=== PATIENT | female | born 1940 | race Two or more races ===

== ENCOUNTER → 2016-11-12 | Outpatient (CLI) | payer OTHER ==
[~2016-11-12] MED LIST: ASPI81CH37; CHOL100029; CLOP75TA28; LISI-646; METF500T; METH2.5T3; OMEG100062; PENT400T21; [UNRECOGNIZED DRUG - CODE]
[2016-11-12 15:30] LABS: Basophils # (auto) 0 uL; Basophils % (auto) 0.4 % (0.0-2.0); Eosinophils # (auto) 0.1 uL; Eosinophils % (auto) 0.9 % (0.0-7.0); Hematocrit 41.8 % (36.0-46.0); Hemoglobin 13.4 g/dL (12.2-16.2); Lymphocytes # (auto) 2.4 uL; Lymphocytes % (auto) 25.7 % (10.0-50.0); Mean Corpuscular Volume 93.7 fL (80.0-100.0); Mean Platelet Volume 7.5 fL (7.4-10.4); Monocytes # (auto) 0.8 uL; Monocytes % (auto) 8.9 % (0.0-12.0); Neutrophils # (auto) 5.9 uL; Neutrophils % (auto) 64.1 % (37.0-80.0); Platelet Count (auto) 324 10^3/uL (140-450); Red Cell Distribution Width 14.7 % (11.6-16.0); White Blood Cell 9.3 10^3/uL (4.4-10.8)
[2016-11-12 15:53] LABS: Albumin 3.6 g/dL (3.4-5.0); Bilirubin, Total 0.4 mg/dL (0.2-1.0); Calcium 9.4 mg/dL (8.5-10.1); Total Protein 7.6 g/dL (6.4-8.2)
== END | disposition home or self-care (01) ==
LOC: LAB 14:39
DX: M06.9 Rheumatoid arthritis, unspecified (principal); M25.50 Pain in unspecified joint; D64.9 Anemia, unspecified; I10 Essential (primary) hypertension; Z79.899 Other long term (current) drug therapy
CPT/HCPCS: 36415; 80053; 85025; 85652; 86141

== ENCOUNTER → 2016-11-25 | Outpatient (CLI) | payer OTHER | END | disposition home or self-care (01) | LOC: LAB 16:50 | PROVIDERS: ATTEND Internal Medicine | DX: E10.9 Type 1 diabetes mellitus without complications (principal); I10 Essential (primary) hypertension | CPT/HCPCS: 36415; 83036; 84439; 84443 ==

== ENCOUNTER → 2017-02-21 | Outpatient (CLI) | payer OTHER ==
[2017-02-21 14:22] LABS: Basophils # (auto) 0 uL; Basophils % (auto) 0.4 % (0.0-2.0); Eosinophils # (auto) 0.1 uL; Eosinophils % (auto) 1.1 % (0.0-7.0); Hematocrit 39.9 % (36.0-46.0); Hemoglobin 13.4 g/dL (12.2-16.2); Lymphocytes # (auto) 2.5 uL; Lymphocytes % (auto) 25.4 % (10.0-50.0); Mean Corpuscular Hemoglobin 30.8 pg (28.0-32.0); Mean Corpuscular Hgb Conc. 33.7 g/dL (32.0-36.0); Mean Corpuscular Volume 91.3 fL (80.0-100.0); Mean Platelet Volume 7.4 fL (7.4-10.4); Monocytes # (auto) 0.6 uL; Monocytes % (auto) 6.5 % (0.0-12.0); Neutrophils # (auto) 6.6 uL; Neutrophils % (auto) 66.6 % (37.0-80.0); Platelet Count (auto) 327 10^3/uL (140-450); Red Cell Distribution Width 14.9 % (11.6-16.0)
[2017-02-21 14:36] LABS: Albumin 3.5 g/dL (3.4-5.0); Bilirubin, Total 0.4 mg/dL (0.2-1.0); Potassium 4.1 mmol/L (3.5-5.1); Total Protein 7.9 g/dL (6.4-8.2); Uric Acid 2.3 mg/dL (2.6-6.0)
== END | disposition home or self-care (01) ==
LOC: LAB 13:55
PROVIDERS: ATTEND Internal Medicine
DX: E10.9 Type 1 diabetes mellitus without complications (principal); M25.50 Pain in unspecified joint
CPT/HCPCS: 36415; 80053; 83036; 84550; 85025; 86141

== ENCOUNTER → 2017-03-18 | Outpatient (CLI) | payer OTHER | END | disposition home or self-care (01) | LOC: LAB 14:13 | DX: K75.9 Inflammatory liver disease, unspecified (principal); B19.20 Unspecified viral hepatitis C without hepatic coma; A15.0 Tuberculosis of lung | CPT/HCPCS: 36415; 80074; 86704; 86706; 86708; 86803; 87340 ==

== ENCOUNTER → 2017-06-18 | Outpatient (CLI) | payer OTHER ==
[2017-06-18 14:34] LABS: Basophils # (auto) 0 uL; Basophils % (auto) 0.4 % (0.0-2.0); Eosinophils # (auto) 0.2 uL; Eosinophils % (auto) 2.1 % (0.0-7.0); Hematocrit 38.5 % (36.0-46.0); Hemoglobin 13.3 g/dL (12.2-16.2); Lymphocytes # (auto) 2.6 uL; Lymphocytes % (auto) 29.2 % (10.0-50.0); Mean Corpuscular Hemoglobin 30.7 pg (28.0-32.0); Mean Corpuscular Hgb Conc. 34.7 g/dL (32.0-36.0); Mean Corpuscular Volume 88.5 fL (80.0-100.0); Monocytes # (auto) 0.6 uL; Monocytes % (auto) 7.3 % (0.0-12.0); Neutrophils # (auto) 5.4 uL; Platelet Count (auto) 337 10^3/uL (140-450); Red Cell Distribution Width 14.6 % (11.8-14.3); White Blood Cell 8.9 10^3/uL (4.4-10.8)
[2017-06-18 15:00] LABS: Albumin 3.2 g/dL (3.4-5.0); BUN/Creatinine Ratio 22.9; Bilirubin, Total 0.3 mg/dL (0.2-1.0); Calcium 9.2 mg/dL (8.5-10.1); Total Protein 7.9 g/dL (6.4-8.2)
== END | disposition home or self-care (01) ==
LOC: LAB 14:21
DX: I10 Essential (primary) hypertension (principal); M06.9 Rheumatoid arthritis, unspecified; M25.50 Pain in unspecified joint; D64.9 Anemia, unspecified; Z79.899 Other long term (current) drug therapy
CPT/HCPCS: 36415; 80053; 85025; 85652; 86141

== ENCOUNTER → 2017-09-24 | Outpatient (CLI) | payer OTHER ==
[2017-09-24 13:51] LABS: Basophils # (auto) 0 uL; Basophils % (auto) 0.4 % (0.0-2.0); Eosinophils # (auto) 0.1 uL; Eosinophils % (auto) 0.7 % (0.0-7.0); Hematocrit 43.2 % (36.0-46.0); Lymphocytes # (auto) 2.7 uL; Lymphocytes % (auto) 26.3 % (10.0-50.0); Mean Corpuscular Hemoglobin 32.1 pg (28.0-32.0); Mean Corpuscular Hgb Conc. 34.6 g/dL (32.0-36.0); Mean Corpuscular Volume 92.6 fL (80.0-100.0); Mean Platelet Volume 6.9 fL (6.9-10.8); Monocytes # (auto) 0.9 uL; Monocytes % (auto) 8.7 % (0.0-12.0); Neutrophils # (auto) 6.5 uL; Neutrophils % (auto) 63.9 % (37.0-80.0); Platelet Count (auto) 283 10^3/uL (140-450); Red Cell Distribution Width 14.8 % (11.8-14.3); White Blood Cell 10.1 10^3/uL (4.4-10.8)
[2017-09-24 14:16] LABS: Albumin 3.6 g/dL (3.4-5.0); BUN/Creatinine Ratio 21.1; Bilirubin, Total 0.5 mg/dL (0.2-1.0); Calcium 9.3 mg/dL (8.5-10.1); Potassium 3.5 mmol/L (3.5-5.1); Total Protein 7.7 g/dL (6.4-8.2)
== END | disposition home or self-care (01) ==
LOC: LAB 13:31
DX: I10 Essential (primary) hypertension (principal); M06.9 Rheumatoid arthritis, unspecified; E78.00 Pure hypercholesterolemia, unspecified; I70.0 Atherosclerosis of aorta; D64.9 Anemia, unspecified; Z79.899 Other long term (current) drug therapy
CPT/HCPCS: 36415; 80053; 85025; 85652; 86141

== ENCOUNTER → 2017-11-26 | Outpatient (CLI) | payer OTHER ==
[2017-11-26 10:46] LABS: Basophils # (auto) 0 uL; Basophils % (auto) 0.4 % (0.0-2.0); Eosinophils # (auto) 0.1 uL; Hematocrit 43.2 % (36.0-46.0); Hemoglobin 14.7 g/dL (12.2-16.2); Lymphocytes # (auto) 1.8 uL; Lymphocytes % (auto) 21.4 % (10.0-50.0); Mean Corpuscular Hemoglobin 31.5 pg (28.0-32.0); Mean Corpuscular Volume 92.7 fL (80.0-100.0); Monocytes # (auto) 0.7 uL; Monocytes % (auto) 7.9 % (0.0-12.0); Neutrophils # (auto) 5.9 uL; Neutrophils % (auto) 69.3 % (37.0-80.0); Nucleated Red Blood Cells % 0.1 %; Platelet Count (auto) 320 10^3/uL (140-450); Red Blood Cells 4.66 10^6/uL (4.0-5.20); Red Cell Distribution Width 13.5 % (11.8-14.3); White Blood Cell 8.4 10^3/uL (4.4-10.8)
[2017-11-26 11:27] LABS: Albumin 3.2 g/dL (3.4-5.0); BUN/Creatinine Ratio 26.4; Bilirubin, Total 0.3 mg/dL (0.2-1.0); CRP High Sensitivity 0.11 mg/dL (< 0.3); Calcium 9.3 mg/dL (8.5-10.1); Potassium 3.9 mmol/L (3.5-5.1); Total Protein 7.9 g/dL (6.4-8.2)
[2017-11-26 12:06] LABS: Free T4 (Free Thyroxine) 1.55 ng/dL (0.89-1.76)
[2017-11-26 12:07] LABS: Folate (Folic Acid) 19.83 ng/mL (5.38-24)
[2017-11-26 13:48] LABS: Urine Amorphous Crystal FEW /hpf (None Seen); Urine Bacteria MOD /hpf (None Seen); Urine Blood Negative /uL (Negative); Urine Budding Yeast FEW /hpf (None Seen); Urine Specific Gravity 1.005 (1.001-1.035); Urine WBC 2 /hpf (0 - 5)
[2017-11-27 03:07] LABS: RPR Non Reactive (Non Reactive)
== END | disposition home or self-care (01) ==
LOC: LAB 09:29
PROVIDERS: ATTEND Internal Medicine
DX: M06.9 Rheumatoid arthritis, unspecified (principal); I10 Essential (primary) hypertension; R41.89 Other symptoms and signs involving cognitive functions and awareness
CPT/HCPCS: 36415; 80053; 80061; 81001; 82043; 82607; 82746; 83036; 84439; 84443; 85025; 86141; 86592

== ENCOUNTER → 2018-03-17 | Outpatient (CLI) | payer OTHER ==
[2018-03-17 10:17] LABS: Basophils # (auto) 0.1 uL; Basophils % (auto) 0.6 % (0.0-2.0); Eosinophils # (auto) 0.1 uL; Eosinophils % (auto) 0.9 % (0.0-7.0); Hematocrit 41.8 % (36.0-46.0); Lymphocytes # (auto) 1.9 uL; Lymphocytes % (auto) 22.9 % (10.0-50.0); Mean Corpuscular Hemoglobin 29.5 pg (28.0-32.0); Mean Corpuscular Hgb Conc. 33.4 g/dL (32.0-36.0); Mean Corpuscular Volume 88.3 fL (80.0-100.0); Monocytes # (auto) 0.8 uL; Monocytes % (auto) 10.2 % (0.0-12.0); Neutrophils # (auto) 5.4 uL; Neutrophils % (auto) 65.4 % (37.0-80.0); Nucleated Red Blood Cells % 0.1 %; Platelet Count (auto) 301 10^3/uL (140-450); Red Blood Cells 4.73 10^6/uL (4.0-5.20); White Blood Cell 8.2 10^3/uL (4.4-10.8)
[2018-03-17 10:43] LABS: BUN/Creatinine Ratio 31.1; Bilirubin, Total 0.5 mg/dL (0.2-1.0); CRP High Sensitivity 0.12 mg/dL (< 0.3); Calcium 8.8 mg/dL (8.5-10.1); Potassium 4.4 mmol/L (3.5-5.1); Total Protein 7.4 g/dL (6.4-8.2)
== END | disposition home or self-care (01) ==
LOC: LAB 09:59
PROVIDERS: ATTEND Internal Medicine
DX: E11.9 Type 2 diabetes mellitus without complications (principal); M06.9 Rheumatoid arthritis, unspecified; I10 Essential (primary) hypertension; E78.00 Pure hypercholesterolemia, unspecified; Z79.899 Other long term (current) drug therapy; Z86.2 Personal history of diseases of the blood and blood-forming organs and certain disorders involving the immune mechanism
CPT/HCPCS: 36415; 80053; 83036; 85025; 86141

== ENCOUNTER → 2018-06-03 | Outpatient (CLI) | payer OTHER ==
[2018-06-03 14:38] LABS: Basophils # (auto) 0 uL; Basophils % (auto) 0.6 % (0.0-2.0); Eosinophils # (auto) 0.2 uL; Eosinophils % (auto) 2.9 % (0.0-7.0); Hematocrit 40.6 % (36.0-46.0); Hemoglobin 13.5 g/dL (12.2-16.2); Lymphocytes # (auto) 2.3 uL; Lymphocytes % (auto) 31.2 % (10.0-50.0); Mean Corpuscular Hemoglobin 29.3 pg (28.0-32.0); Mean Corpuscular Hgb Conc. 33.2 g/dL (32.0-36.0); Mean Corpuscular Volume 88.1 fL (80.0-100.0); Monocytes # (auto) 0.6 uL; Monocytes % (auto) 8.3 % (0.0-12.0); Neutrophils # (auto) 4.2 uL; Platelet Count (auto) 314 10^3/uL (140-450); Red Blood Cells 4.61 10^6/uL (4.0-5.20); Red Cell Distribution Width 14.3 % (11.8-14.3); White Blood Cell 7.4 10^3/uL (4.4-10.8)
[2018-06-03 15:25] LABS: Albumin 3.5 g/dL (3.4-5.0); BUN/Creatinine Ratio 13.9; Bilirubin, Total 0.5 mg/dL (0.2-1.0); CRP High Sensitivity 0.08 mg/dL (< 0.3); Calcium 8.9 mg/dL (8.5-10.1); Total Protein 7.7 g/dL (6.4-8.2); Uric Acid 3.2 mg/dL (2.6-6.0)
== END | disposition home or self-care (01) ==
LOC: LAB 14:18
PROVIDERS: ATTEND Internal Medicine
DX: I10 Essential (primary) hypertension (principal); M06.9 Rheumatoid arthritis, unspecified
CPT/HCPCS: 36415; 80053; 83880; 84550; 85025; 86141

== ENCOUNTER → 2018-06-05 | Outpatient (CLI) | payer OTHER | END | disposition home or self-care (01) | LOC: XY 09:34 | PROVIDERS: ATTEND Internal Medicine | DX: M71.22 Synovial cyst of popliteal space [Baker], left knee (principal); I86.8 Varicose veins of other specified sites; I10 Essential (primary) hypertension; E11.9 Type 2 diabetes mellitus without complications | CPT/HCPCS: 93970 ==

== ENCOUNTER → 2018-06-25 | Outpatient (CLI) | payer OTHER ==
[2018-06-25 15:19] LABS: Basophils # (auto) 0 uL; Basophils % (auto) 0.5 % (0.0-2.0); Eosinophils # (auto) 0.2 uL; Eosinophils % (auto) 1.8 % (0.0-7.0); Hematocrit 42.5 % (36.0-46.0); Hemoglobin 14.4 g/dL (12.2-16.2); Lymphocytes # (auto) 2.1 uL; Lymphocytes % (auto) 24.3 % (10.0-50.0); Mean Corpuscular Hemoglobin 29.5 pg (28.0-32.0); Mean Corpuscular Hgb Conc. 33.9 g/dL (32.0-36.0); Mean Corpuscular Volume 86.9 fL (80.0-100.0); Monocytes # (auto) 0.7 uL; Monocytes % (auto) 7.6 % (0.0-12.0); Neutrophils # (auto) 5.8 uL; Neutrophils % (auto) 65.8 % (37.0-80.0); Platelet Count (auto) 257 10^3/uL (140-450); Red Blood Cells 4.89 10^6/uL (4.0-5.20); Red Cell Distribution Width 13.8 % (11.8-14.3); White Blood Cell 8.7 10^3/uL (4.4-10.8)
[2018-06-25 16:04] LABS: Albumin 3.6 g/dL (3.4-5.0); BUN/Creatinine Ratio 21.5; Bilirubin, Total 0.4 mg/dL (0.2-1.0); CRP High Sensitivity 0.29 mg/dL (< 0.3); Potassium 4.3 mmol/L (3.5-5.1); Total Protein 8.5 g/dL (6.4-8.2)
[2018-06-25 16:11] LABS: Hepatitis B Surface Antibody Negative
[2018-06-25 16:50] LABS: Hepatitis A Total Antibody Positive
[2018-06-25 16:53] LABS: Hepatitis B Core Total AB Negative
[2018-06-25 16:54] LABS: Hepatitis B Surface Antigen Negative (Negative); Hepatitis C Antibody Negative (Negative)
== END | disposition home or self-care (01) ==
LOC: LAB 14:42
PROVIDERS: ATTEND Internal Medicine
DX: M06.9 Rheumatoid arthritis, unspecified (principal); E11.9 Type 2 diabetes mellitus without complications; I10 Essential (primary) hypertension
CPT/HCPCS: 36415; 80053; 82306; 84443; 85025; 85652; 86038; 86141; 86200; 86235; 86431; 86704; 86706; 86708; 86803; 87340

== ENCOUNTER → 2018-07-27 | Outpatient (CLI) | payer OTHER | END | disposition home or self-care (01) | LOC: XYW 09:34 | PROVIDERS: ATTEND Internal Medicine | DX: R74.8 Abnormal levels of other serum enzymes (principal) | CPT/HCPCS: 78306; A9503 ==

== ENCOUNTER 2018-08-04 15:56 | Inpatient (IN) | payer OTHER ==
[~2018-08-04] VITALS: Ht 152.4 cm; Wt 52.9 kg
[2018-08-04] MEDS ORDERED: VANCOMYCIN 1GM/250ML 250 ML IV ONE (17:15)
[2018-08-04 17:44] LABS: Basophils # (auto) 0 uL; Basophils % (auto) 0.4 % (0.0-2.0); Eosinophils # (auto) 0.1 uL; Eosinophils % (auto) 1.3 % (0.0-7.0); Hematocrit 39.6 % (36.0-46.0); Hemoglobin 13.3 g/dL (12.2-16.2); Lymphocytes # (auto) 1.5 uL; Lymphocytes % (auto) 17.8 % (10.0-50.0); Mean Corpuscular Hgb Conc. 33.7 g/dL (32.0-36.0); Monocytes # (auto) 0.8 uL; Monocytes % (auto) 9.5 % (0.0-12.0); Neutrophils # (auto) 6.2 uL; Platelet Count (auto) 303 10^3/uL (140-450); Red Cell Distribution Width 14.3 % (11.8-14.3); White Blood Cell 8.7 10^3/uL (4.4-10.8)
[2018-08-04 18:01] LABS: Albumin 3.4 g/dL (3.4-5.0); Calcium 9.1 mg/dL (8.5-10.1); Potassium 3.9 mmol/L (3.5-5.1)
[2018-08-04 18:04] LABS: Bilirubin, Total 0.6 mg/dL (0.2-1.0)
[2018-08-04 18:11] LABS: Lactic Acid w/Reflex 2.4 mmol/L (0.4-2.0)
[2018-08-04] MEDS ORDERED: ACETAMINOPHEN 500 MG TAB PO PRN (22:30)
[2018-08-04] MEDS ORDERED: SODIUM CHLORIDE 0.9% 1,000 ML IV ONE (22:30)
[2018-08-04] MEDS ORDERED: DEXTROSE (50%) 50ML SYRG IV PRN (22:30)
[2018-08-04] MEDS ORDERED: ONDANSETRON HCL 4 MG/2 ML VIAL IV PRN (22:30)
[2018-08-04 23:05] VITALS: BP 130/68
[2018-08-04] MEDS: HYDROcodone-ACET 5/325MG TAB PO PRN (23:59)
[2018-08-05 05:15] VITALS: BP 109/63
[2018-08-05 05:48] LABS: Basophils # (auto) 0 uL; Basophils % (auto) 0.4 % (0.0-2.0); Eosinophils # (auto) 0.2 uL; Eosinophils % (auto) 3.5 % (0.0-7.0); Hematocrit 35.7 % (36.0-46.0); Hemoglobin 12.2 g/dL (12.2-16.2); Lymphocytes % (auto) 29.7 % (10.0-50.0); Mean Corpuscular Hemoglobin 29.4 pg (28.0-32.0); Mean Corpuscular Hgb Conc. 34.3 g/dL (32.0-36.0); Mean Corpuscular Volume 85.6 fL (80.0-100.0); Monocytes # (auto) 0.8 uL; Monocytes % (auto) 11.8 % (0.0-12.0); Neutrophils # (auto) 3.6 uL; Neutrophils % (auto) 54.6 % (37.0-80.0); Nucleated Red Blood Cells % 0.1 %; Platelet Count (auto) 276 10^3/uL (140-450); Red Blood Cells 4.17 10^6/uL (4.0-5.20); Red Cell Distribution Width 14.3 % (11.8-14.3); White Blood Cell 6.6 10^3/uL (4.4-10.8)
[2018-08-05 05:59] LABS: BUN/Creatinine Ratio 17.9; Calcium 8.2 mg/dL (8.5-10.1); Potassium 3.6 mmol/L (3.5-5.1)
[2018-08-05] MEDS: CLINDAMYCIN 600MG IV 50 ML IV SCH ×3 (06:15→22:00)
[2018-08-05] MEDS: HYDROcodone-ACET 5/325MG TAB PO PRN ×3 (06:30→20:30)
[2018-08-05] MEDS: ACCU-CHEK COMFORT CURVE STRIP VI SCH ×4 (06:31→22:15)
[2018-08-05] MEDS: InsuLIN REG 1unit/0.01ml Soln (100units/ml) SC SCH ×4 (06:32→22:15)
[2018-08-05] MEDS ORDERED: metFORMIN HYDROCHLORIDE 500 MG TAB PO SCH ×2 (07:00→10:00)
[2018-08-05 07:15] LABS: Urine Bacteria FEW /hpf (None Seen); Urine Blood TRACE /uL (Negative); Urine WBC 342 /hpf (0 - 5); Urine WBC Clumps PRESENT /hpf (None Seen)
[2018-08-05 08:02] VITALS: BP 109/67
[2018-08-05] MEDS ORDERED: FOLI1TAB6 PO (09:21)
[2018-08-05] MEDS ORDERED: LISI-275 PO (09:21)
[2018-08-05] MEDS ORDERED: CLOP75TA41 PO (09:21)
[2018-08-05] MEDS ORDERED: METF-370 PO (09:21)
[2018-08-05] MEDS: LISINOPRIL 10 MG TAB PO SCH (09:22)
[2018-08-05] MEDS: CLOPIDOGREL BISULFATE 75 MG TAB PO SCH (10:00)
[2018-08-05] MEDS ORDERED: LEVOFLOXACIN 500MG 100 ML IV ONE (12:00)
[2018-08-05 12:34] VITALS: BP 121/68
[2018-08-05 16:13] VITALS: BP 103/54
[2018-08-05 22:00] VITALS: BP 117/65
[2018-08-06 04:55] VITALS: BP 120/68
[2018-08-06] MEDS: CLINDAMYCIN 600MG IV 50 ML IV SCH ×3 (05:54→21:22)
[2018-08-06] MEDS: ACCU-CHEK COMFORT CURVE STRIP VI SCH ×4 (06:11→21:22)
[2018-08-06] MEDS: InsuLIN REG 1unit/0.01ml Soln (100units/ml) SC SCH ×4 (06:12→21:23)
[2018-08-06 09:11] VITALS: BP 133/76
[2018-08-06] MEDS: LISINOPRIL 10 MG TAB PO SCH (10:00)
[2018-08-06] MEDS ORDERED: LEVOFLOXACIN 500MG 100 ML IV SCH (10:00)
[2018-08-06] MEDS: CLOPIDOGREL BISULFATE 75 MG TAB PO SCH (10:00)
[2018-08-06] MEDS ORDERED: LEVOFLOXACIN 250MG 50 ML IV SCH (10:00)
[2018-08-06] MEDS ORDERED: SODIUM CHLORIDE 0.9% 1,000 ML IV ONE (10:30)
[2018-08-06] MEDS ORDERED: IOHEXOL 350 MG/ML 100ML IJ ONE ×2 (12:06→12:09)
[2018-08-06 13:29] VITALS: BP 119/70
[2018-08-06 17:28] VITALS: BP 126/75
[2018-08-06 20:00] VITALS: BP 122/64
[2018-08-06] MEDS: HYDROcodone-ACET 5/325MG TAB PO PRN (21:30)
[2018-08-06 23:53] VITALS: BP 122/31
[2018-08-07] VITALS (7 sets, daily range): BP systolic 111–140; BP diastolic 60–72
[2018-08-07] MEDS: CLINDAMYCIN 600MG IV 50 ML IV SCH ×3 (05:35→21:59)
[2018-08-07 05:41] LABS: INR 0.94 (0.9-1.15); Partial Thromboplastin Time 22.9 sec (23.78-33.04); Prothrombin Time 10.1 sec (9.27-12.13)
[2018-08-07 05:57] LABS: BUN/Creatinine Ratio 15.9; Calcium 8.3 mg/dL (8.5-10.1)
[2018-08-07] MEDS: InsuLIN REG 1unit/0.01ml Soln (100units/ml) SC SCH ×4 (06:52→22:06)
[2018-08-07] MEDS: ACCU-CHEK COMFORT CURVE STRIP VI SCH ×4 (06:52→22:06)
[2018-08-07] MEDS: CLOPIDOGREL BISULFATE 75 MG TAB PO SCH (10:00)
[2018-08-07] MEDS ORDERED: LEVOFLOXACIN 500MG 100 ML IV SCH (10:00)
[2018-08-07] MEDS: LISINOPRIL 10 MG TAB PO SCH (10:00)
[2018-08-07] MEDS ORDERED: SODIUM CHL 0.9% 50 ML ONE ×2 (10:42→12:52)
[2018-08-07] MEDS ORDERED: MIDAZOLAM HCL 1MG/1ML-2 ML VIAL ONE ×3 (10:42→13:19)
[2018-08-07] MEDS ORDERED: fentaNYL CITRATE 100 MCG/2 ML VL ONE ×2 (10:42→12:14)
[2018-08-07] MEDS ORDERED: ANGIOMAX 250 MG VIAL IV ONE ×2 (10:43→12:53)
[2018-08-07] MEDS ORDERED: IOHEXOL 350 MG/ML 100ML IJ ONE (10:45)
[2018-08-07] MEDS ORDERED: LIDOCAINE 2%HCL (LOCAL ANESTH.) INJ 20ML MDV ONE ×2 (10:46→12:31)
[2018-08-07] MEDS ORDERED: IODIXANOL 320MG/ML 100ML BTL IV ONE (10:54)
[2018-08-07] MEDS ORDERED: CLOPIDOGREL BISULFATE 75 MG TAB ONE (10:58)
[2018-08-07] MEDS ORDERED: hydrOXYzine HCL 25 MG/ML VL IM ONE (13:37)
[2018-08-07] MEDS: HYDROcodone-ACET 5/325MG TAB PO PRN (21:59)
[2018-08-08 05:17] VITALS: BP 114/63
[2018-08-08] MEDS: CLINDAMYCIN 600MG IV 50 ML IV SCH ×3 (05:49→21:39)
[2018-08-08] MEDS: ACCU-CHEK COMFORT CURVE STRIP VI SCH ×4 (05:50→21:39)
[2018-08-08] MEDS: InsuLIN REG 1unit/0.01ml Soln (100units/ml) SC SCH ×4 (05:57→21:49)
[2018-08-08] MEDS: HYDROcodone-ACET 5/325MG TAB PO PRN (05:57)
[2018-08-08 06:07] LABS: Basophils # (auto) 0 uL; Basophils % (auto) 0.6 % (0.0-2.0); Eosinophils # (auto) 0.2 uL; Eosinophils % (auto) 2.5 % (0.0-7.0); Hematocrit 35.6 % (36.0-46.0); Hemoglobin 12.1 g/dL (12.2-16.2); Lymphocytes # (auto) 1.7 uL; Lymphocytes % (auto) 23.6 % (10.0-50.0); Mean Corpuscular Hemoglobin 29.1 pg (28.0-32.0); Mean Corpuscular Hgb Conc. 34.1 g/dL (32.0-36.0); Mean Corpuscular Volume 85.4 fL (80.0-100.0); Monocytes # (auto) 0.8 uL; Monocytes % (auto) 10.9 % (0.0-12.0); Neutrophils # (auto) 4.6 uL; Neutrophils % (auto) 62.4 % (37.0-80.0); Platelet Count (auto) 272 10^3/uL (140-450); Red Blood Cells 4.17 10^6/uL (4.0-5.20); Red Cell Distribution Width 14.6 % (11.8-14.3); White Blood Cell 7.3 10^3/uL (4.4-10.8)
[2018-08-08 06:30] LABS: Calcium 8.3 mg/dL (8.5-10.1); Potassium 4.3 mmol/L (3.5-5.1)
[2018-08-08 06:33] LABS: BUN/Creatinine Ratio 27.9
[2018-08-08 09:00] VITALS: BP 111/54
[2018-08-08] MEDS: CLOPIDOGREL BISULFATE 75 MG TAB PO SCH (09:27)
[2018-08-08] MEDS: LISINOPRIL 10 MG TAB PO SCH (15:19)
[2018-08-08 17:04] VITALS: BP 108/55
[2018-08-08 22:00] VITALS: BP 129/68
[2018-08-09 05:25] VITALS: BP 115/54
[2018-08-09] MEDS: CLINDAMYCIN 600MG IV 50 ML IV SCH ×3 (06:15→21:56)
[2018-08-09] MEDS: InsuLIN REG 1unit/0.01ml Soln (100units/ml) SC SCH ×4 (06:36→21:56)
[2018-08-09] MEDS: ACCU-CHEK COMFORT CURVE STRIP VI SCH ×4 (06:36→21:56)
[2018-08-09 09:00] VITALS: BP 88/46
[2018-08-09] MEDS: CLOPIDOGREL BISULFATE 75 MG TAB PO SCH (09:19)
[2018-08-09] MEDS: LISINOPRIL 10 MG TAB PO SCH (09:19)
[2018-08-09] MEDS: HYDROcodone-ACET 5/325MG TAB PO PRN ×2 (09:21→23:19)
[2018-08-09 13:00] VITALS: BP 115/59
[2018-08-09] MEDS ORDERED: TEMAZEPAM 15 MG CAP PO PRN (15:00)
[2018-08-09 17:00] VITALS: BP 118/68
[2018-08-09 22:00] VITALS: BP 125/69
[2018-08-10 05:10] VITALS: BP 121/64
[2018-08-10] MEDS: CLINDAMYCIN 600MG IV 50 ML IV SCH ×3 (06:14→22:15)
[2018-08-10] MEDS: ACCU-CHEK COMFORT CURVE STRIP VI SCH ×4 (06:15→22:15)
[2018-08-10] MEDS: InsuLIN REG 1unit/0.01ml Soln (100units/ml) SC SCH ×4 (06:15→22:16)
[2018-08-10 09:05] VITALS: BP 126/71
[2018-08-10] MEDS: LISINOPRIL 10 MG TAB PO SCH (11:17)
[2018-08-10] MEDS: CLOPIDOGREL BISULFATE 75 MG TAB PO SCH (11:17)
[2018-08-10] MEDS: HYDROcodone-ACET 5/325MG TAB PO PRN (11:57)
[2018-08-10 12:04] VITALS: BP 126/74
[2018-08-10 16:24] VITALS: BP 126/70
[2018-08-10 20:00] VITALS: BP 113/62
[2018-08-10 21:27] VITALS: BP 113/62
[2018-08-11 05:26] VITALS: BP 108/55
[2018-08-11 05:46] LABS: Basophils # (auto) 0 uL; Basophils % (auto) 0.7 % (0.0-2.0); Eosinophils # (auto) 0.4 uL; Hematocrit 36.7 % (36.0-46.0); Hemoglobin 12.6 g/dL (12.2-16.2); Lymphocytes % (auto) 27.6 % (10.0-50.0); Mean Corpuscular Hemoglobin 29.3 pg (28.0-32.0); Mean Corpuscular Hgb Conc. 34.4 g/dL (32.0-36.0); Mean Corpuscular Volume 85.3 fL (80.0-100.0); Monocytes # (auto) 0.8 uL; Monocytes % (auto) 11.5 % (0.0-12.0); Neutrophils # (auto) 3.9 uL; Neutrophils % (auto) 55.2 % (37.0-80.0); Platelet Count (auto) 302 10^3/uL (140-450); Red Blood Cells 4.31 10^6/uL (4.0-5.20); White Blood Cell 7.1 10^3/uL (4.4-10.8)
[2018-08-11] MEDS: CLINDAMYCIN 600MG IV 50 ML IV SCH ×3 (05:50→22:08)
[2018-08-11 06:05] LABS: Calcium 8.5 mg/dL (8.5-10.1); Potassium 4.1 mmol/L (3.5-5.1)
[2018-08-11] MEDS: ACCU-CHEK COMFORT CURVE STRIP VI SCH ×4 (06:53→22:13)
[2018-08-11] MEDS: InsuLIN REG 1unit/0.01ml Soln (100units/ml) SC SCH ×4 (06:53→22:00)
[2018-08-11 08:36] VITALS: BP 102/65
[2018-08-11] MEDS: CLOPIDOGREL BISULFATE 75 MG TAB PO SCH ×2 (10:00→16:45)
[2018-08-11] MEDS: LISINOPRIL 10 MG TAB PO SCH (10:00)
[2018-08-11] MEDS ORDERED: LIDOCAINE 2%HCL (LOCAL ANESTH.) INJ 20ML MDV ONE (12:20)
[2018-08-11] MEDS ORDERED: IODIXANOL 320MG/ML 100ML BTL IV ONE (12:21)
[2018-08-11] MEDS ORDERED: ANGIOMAX 250 MG VIAL IV ONE ×2 (12:25→15:12)
[2018-08-11] MEDS ORDERED: MIDAZOLAM HCL 1MG/1ML-2 ML VIAL ONE (12:25)
[2018-08-11] MEDS ORDERED: fentaNYL CITRATE 100 MCG/2 ML VL ONE ×2 (12:25→14:42)
[2018-08-11] MEDS ORDERED: SODIUM CHL 0.9% 50 ML ONE ×2 (12:26→15:12)
[2018-08-11] MEDS ORDERED: VERAPAMIL 2.5MG/ML INJ 2ML VIAL IV ONE ×2 (12:26→15:11)
[2018-08-11] MEDS ORDERED: IOHEXOL 350 MG/ML 100ML IJ ONE (12:33)
[2018-08-11] MEDS: HYDROcodone-ACET 5/325MG TAB PO PRN (17:08)
[2018-08-11 23:02] VITALS: BP 118/67
[2018-08-12] MEDS: HYDROcodone-ACET 5/325MG TAB PO PRN ×2 (04:38→09:25)
[2018-08-12 05:12] VITALS: BP 114/56
[2018-08-12] MEDS: CLINDAMYCIN 600MG IV 50 ML IV SCH (05:35)
[2018-08-12] MEDS: InsuLIN REG 1unit/0.01ml Soln (100units/ml) SC SCH ×2 (06:36→11:30)
[2018-08-12] MEDS: ACCU-CHEK COMFORT CURVE STRIP VI SCH ×2 (06:36→11:30)
[2018-08-12 08:00] VITALS: BP 107/60
[2018-08-12 08:47] VITALS: BP 107/60
[2018-08-12] MEDS: CLOPIDOGREL BISULFATE 75 MG TAB PO SCH (09:24)
[2018-08-12] MEDS: LISINOPRIL 10 MG TAB PO SCH (09:25)
[2018-08-12] MEDS ORDERED: AMOX-263 PO (09:34)
[2018-08-12 10:17] VITALS: BP 107/60
== END 2018-08-12 12:13 | disposition home or self-care (01) | DRG 271 ==
LOC: ER 16:02 → OVERFLOW 16:03 → WEST WING 23:05
PROVIDERS: ADMIT Nurse Practitioner Family; ATTEND Internal Medicine
PROC: 047L3Z1 Dilation of Left Femoral Artery using Drug-Coated Balloon, Percutaneous Approach (ICD-10-PCS; principal; 2018-08-11)
PROC: 04CL3ZZ Extirpation of Matter from Left Femoral Artery, Percutaneous Approach (ICD-10-PCS; 2018-08-11)
PROC: 047N3Z1 Dilation of Left Popliteal Artery using Drug-Coated Balloon, Percutaneous Approach (ICD-10-PCS; 2018-08-11)
PROC: 047Q3Z1 Dilation of Left Anterior Tibial Artery using Drug-Coated Balloon, Percutaneous Approach (ICD-10-PCS; 2018-08-11)
PROC: 047U3Z1 Dilation of Left Peroneal Artery using Drug-Coated Balloon, Percutaneous Approach (ICD-10-PCS; 2018-08-11)
PROC: 047J3D1 Dilation of Left External Iliac Artery with Intraluminal Device, using Drug-Coated Balloon, Percutaneous Approach (ICD-10-PCS; 2018-08-11)
PROC: B41G1ZZ Fluoroscopy of Left Lower Extremity Arteries using Low Osmolar Contrast (ICD-10-PCS; 2018-08-11)
DX: I74.5 Embolism and thrombosis of iliac artery (principal); L03.116 Cellulitis of left lower limb; E87.1 Hypo-osmolality and hyponatremia; N39.0 Urinary tract infection, site not specified; I70.92 Chronic total occlusion of artery of the extremities; I10 Essential (primary) hypertension; E11.8 Type 2 diabetes mellitus with unspecified complications; E11.51 Type 2 diabetes mellitus with diabetic peripheral angiopathy without gangrene; M19.90 Unspecified osteoarthritis, unspecified site; B95.61 Methicillin susceptible Staphylococcus aureus infection as the cause of diseases classified elsewhere; Z16.11 Resistance to penicillins; I70.292 Other atherosclerosis of native arteries of extremities, left leg; I70.0 Atherosclerosis of aorta; I70.202 Unspecified atherosclerosis of native arteries of extremities, left leg; J98.4 Other disorders of lung
CPT/HCPCS: 36415; 71046; 73630; 75625; 75635; 76937; 76942; 80048; 80053; 81001; 82962; 83036; 83605; 85025; 85610; 85652; 85730; 87040; 87077; 87086; 87186; 87205; 93005; 93925; 94761; 96361; 96365; 96367; 99152; A6257; C1769; C1781; C1887; G0378; J1815; J1956; J2250; J3490; Q9967

== ENCOUNTER → 2018-09-11 | Outpatient (CLI) | payer OTHER ==
[~2018-09-11] MED LIST changes: +AMOX-263 PO; -ASPI81CH37; -CHOL100029; -CLOP75TA28; +CLOP75TA41 PO; +FOLI1TAB6 PO; +LISI-275 PO; -LISI-646; +METF-370 PO; -METF500T; -METH2.5T3; -OMEG100062; -PENT400T21; -[UNRECOGNIZED DRUG - CODE]
[2018-09-11 14:46] LABS: Basophils # (auto) 0 uL; Basophils % (auto) 0.5 % (0.0-2.0); Eosinophils # (auto) 0.2 uL; Hematocrit 36.4 % (36.0-46.0); Hemoglobin 12.2 g/dL (12.2-16.2); Lymphocytes # (auto) 2.1 uL; Lymphocytes % (auto) 26.2 % (10.0-50.0); Mean Corpuscular Hemoglobin 28.4 pg (28.0-32.0); Mean Corpuscular Hgb Conc. 33.5 g/dL (32.0-36.0); Mean Corpuscular Volume 84.7 fL (80.0-100.0); Monocytes # (auto) 0.7 uL; Monocytes % (auto) 8.5 % (0.0-12.0); Neutrophils # (auto) 4.8 uL; Neutrophils % (auto) 61.8 % (37.0-80.0); Nucleated Red Blood Cells % 0.1 %; Platelet Count (auto) 299 10^3/uL (140-450); White Blood Cell 7.8 10^3/uL (4.4-10.8)
[2018-09-11 14:54] LABS: Urine Blood Negative /uL (Negative); Urine Specific Gravity 1.004 (1.001-1.035)
[2018-09-11 15:10] LABS: Albumin 3.4 g/dL (3.4-5.0); Potassium 3.8 mmol/L (3.5-5.1)
[2018-09-11 15:20] LABS: BUN/Creatinine Ratio 18.2; Bilirubin, Total 0.5 mg/dL (0.2-1.0); CRP High Sensitivity 1.45 mg/dL (< 0.3); Total Protein 7.5 g/dL (6.4-8.2)
== END | disposition home or self-care (01) ==
LOC: LAB 13:39
PROVIDERS: ATTEND Internal Medicine
DX: M05.79 Rheumatoid arthritis with rheumatoid factor of multiple sites without organ or systems involvement (principal); I10 Essential (primary) hypertension; E11.9 Type 2 diabetes mellitus without complications
CPT/HCPCS: 36415; 80053; 81003; 85025; 85652; 86141

== ENCOUNTER → 2019-02-08 | Outpatient (CLI) | payer OTHER ==
[2019-02-08 11:53] LABS: Basophils # (auto) 0 uL; Basophils % (auto) 0.4 % (0.0-2.0); Eosinophils # (auto) 0.2 uL; Eosinophils % (auto) 2.5 % (0.0-7.0); Hematocrit 36.8 % (36.0-46.0); Hemoglobin 12.4 g/dL (12.2-16.2); Lymphocytes # (auto) 1.7 uL; Lymphocytes % (auto) 22.7 % (10.0-50.0); Mean Corpuscular Hemoglobin 27.6 pg (28.0-32.0); Mean Corpuscular Hgb Conc. 33.9 g/dL (32.0-36.0); Mean Corpuscular Volume 81.5 fL (80.0-100.0); Monocytes # (auto) 0.6 uL; Monocytes % (auto) 8.2 % (0.0-12.0); Neutrophils # (auto) 4.9 uL; Neutrophils % (auto) 66.2 % (37.0-80.0); Platelet Count (auto) 333 10^3/uL (140-450); Red Blood Cells 4.51 10^6/uL (4.0-5.20); Red Cell Distribution Width 16.2 % (11.8-14.3); White Blood Cell 7.4 10^3/uL (4.4-10.8)
[2019-02-08 12:41] LABS: Potassium 4.3 mmol/L (3.5-5.1)
[2019-02-08 12:56] LABS: Albumin 3.3 g/dL (3.4-5.0); BUN/Creatinine Ratio 17.9; Bilirubin, Total 0.4 mg/dL (0.2-1.0); Calcium 9.1 mg/dL (8.5-10.1); Total Protein 7.8 g/dL (6.4-8.2)
[2019-02-08 14:34] LABS: Free T4 (Free Thyroxine) 1.42 ng/dL (0.89-1.76)
[2019-02-09 12:46] LABS: Urine Bacteria FEW /hpf (None Seen); Urine Blood Negative /uL (Negative); Urine Specific Gravity 1.005 (1.001-1.035); Urine WBC 7 /hpf (0 - 5)
== END | disposition home or self-care (01) ==
LOC: LAB 10:45
PROVIDERS: ATTEND Internal Medicine
DX: E11.9 Type 2 diabetes mellitus without complications (principal); M06.9 Rheumatoid arthritis, unspecified; I10 Essential (primary) hypertension
CPT/HCPCS: 36415; 80053; 80061; 81001; 82043; 82607; 83036; 84439; 84443; 85025; 85652

== ENCOUNTER → 2019-03-19 | Outpatient (CLI) | payer OTHER ==
[2019-03-19 13:42] LABS: Alcohol, Urine < 3.0 mg/dL (0-5); Amphetamine Screen, Urine NEGATIVE (NEGATIVE); Barbiturate Scree,Urine NEGATIVE (NEGATIVE); Benzodiazephine Screen, Urine NEGATIVE (NEGATIVE); Cannabinoid Screen, Urine NEGATIVE (NEGATIVE); Cocaine Screen, Urine NEGATIVE (NEGATIVE); Opiate Scree,Urine NEGATIVE (NEGATIVE); Phencyclidine Screen, Urine NEGATIVE (NEGATIVE)
== END | disposition home or self-care (01) ==
LOC: LAB 13:14
PROVIDERS: ATTEND Internal Medicine
DX: Z79.899 Other long term (current) drug therapy (principal)
CPT/HCPCS: 80307

== ENCOUNTER → 2019-09-07 | Outpatient (CLI) | payer OTHER ==
[2019-09-07 15:40] LABS: Eosinophils # (auto) 0.1 uL; Lymphocytes # (auto) 2.1 uL; White Blood Cell 12.2 10^3/uL (4.4-10.8)
[2019-09-07 15:41] LABS: Basophils # (auto) 0.1 uL; Basophils % (auto) 0.6 % (0.0-2.0); Eosinophils % (auto) 0.7 % (0.0-7.0); Hematocrit 24.2 % (36.0-46.0); Hemoglobin 7.2 g/dL (12.2-16.2); Lymphocytes % (auto) 16.8 % (10.0-50.0); Mean Corpuscular Hemoglobin 17.8 pg (28.0-32.0); Mean Corpuscular Hgb Conc. 29.7 g/dL (32.0-36.0); Mean Corpuscular Volume 59.8 fL (80.0-100.0); Monocytes # (auto) 0.9 uL; Monocytes % (auto) 7.2 % (0.0-12.0); Neutrophils # (auto) 9.1 uL; Neutrophils % (auto) 74.7 % (37.0-80.0); Platelet Count (auto) 637 10^3/uL (140-450); Red Blood Cells 4.04 10^6/uL (4.0-5.20)
[2019-09-07 15:47] LABS: Red Cell Distribution Width 22.5 % (11.8-14.3)
[2019-09-07 16:02] LABS: BUN/Creatinine Ratio 19.4; Calcium 8.5 mg/dL (8.5-10.1); Potassium 3.7 mmol/L (3.5-5.1)
[2019-09-07 16:03] LABS: Bilirubin, Total 0.4 mg/dL (0.2-1.0); Total Protein 7.6 g/dL (6.4-8.2)
== END | disposition home or self-care (01) ==
LOC: LAB 15:04
PROVIDERS: ATTEND Internal Medicine
DX: E11.21 Type 2 diabetes mellitus with diabetic nephropathy (principal); I10 Essential (primary) hypertension
CPT/HCPCS: 36415; 80053; 83036; 85025

== ENCOUNTER → 2019-09-14 | Outpatient (CLI) | payer OTHER ==
[~2019-09-14] MED LIST changes: -AMOX-263 PO
[2019-09-14 12:30] LABS: Eosinophils # (auto) 0.1 uL; Hemoglobin 10.2 g/dL (12.2-16.2); Monocytes # (auto) 0.5 uL; White Blood Cell 7.4 10^3/uL (4.4-10.8)
[2019-09-14 12:33] LABS: Basophils # (auto) 0 uL; Basophils % (auto) 0.5 % (0.0-2.0); Eosinophils % (auto) 1.2 % (0.0-7.0); Hematocrit 31.6 % (36.0-46.0); Lymphocytes % (auto) 14.1 % (10.0-50.0); Mean Corpuscular Hemoglobin 21.4 pg (28.0-32.0); Mean Corpuscular Hgb Conc. 32.1 g/dL (32.0-36.0); Mean Corpuscular Volume 66.7 fL (80.0-100.0); Monocytes % (auto) 7.4 % (0.0-12.0); Neutrophils # (auto) 5.7 uL; Neutrophils % (auto) 76.8 % (37.0-80.0); Platelet Count (auto) 425 10^3/uL (140-450); Red Blood Cells 4.74 10^6/uL (4.0-5.20)
[2019-09-14 12:36] LABS: INR 1.02 (0.9-1.15)
== END | disposition home or self-care (01) ==
LOC: LAB 11:42
PROVIDERS: ATTEND Internal Medicine
DX: Z01.818 Encounter for other preprocedural examination (principal); D64.9 Anemia, unspecified
CPT/HCPCS: 36415; 85025; 85610

== ENCOUNTER → 2019-11-15 | Day surgery (SDC) | payer OTHER ==
[2019-11-09 15:37] LABS: Basophils # (auto) 0 uL; Eosinophils # (auto) 0.3 uL; Monocytes # (auto) 0.8 uL
[2019-11-09 15:38] LABS: Basophils % (auto) 0.2 % (0.0-2.0); Eosinophils % (auto) 3.4 % (0.0-7.0); Hematocrit 31.6 % (36.0-46.0); Lymphocytes # (auto) 1.5 uL; Lymphocytes % (auto) 15.3 % (10.0-50.0); Mean Corpuscular Hemoglobin 22.2 pg (28.0-32.0); Mean Corpuscular Hgb Conc. 31.6 g/dL (32.0-36.0); Mean Corpuscular Volume 70.1 fL (80.0-100.0); Monocytes % (auto) 8.5 % (0.0-12.0); Neutrophils % (auto) 72.6 % (37.0-80.0); Platelet Count (auto) 331 10^3/uL (140-450); White Blood Cell 9.7 10^3/uL (4.4-10.8)
[2019-11-09 15:39] LABS: Red Cell Distribution Width 29.8 % (11.8-14.3)
[2019-11-09 16:06] LABS: INR 0.98 (0.9-1.15); Partial Thromboplastin Time 23.8 sec (23.64-32.05)
[~2019-11-15] VITALS: Ht 154.9 cm; Wt 49.9 kg
[~2019-11-15] MED LIST changes: +FLUMAZENIL 0.1 MG/ML INJ 10ML MDV IV ONE; +LIDOCAINE VISCOUS 2% 15ML UD ONE; +NALOXONE HCL 0.4 MG/ML VIAL ONE; +SODIUM CHLORIDE LOCK 10 ML ONE; +diphenhdrAMINE HCL 50 MG/1 ML VL ONE
[2019-11-15] MEDS: MIDAZOLAM HCL 5 MG/ML-1ML VIAL ONE ×3 (09:10→09:23)
[2019-11-15] MEDS: fentaNYL CITRATE 100 MCG/2 ML VL ONE ×3 (09:10→09:23)
[2019-11-15 10:20] VITALS: BP 146/76
== END | disposition home or self-care (01) ==
LOC: GI 08:11
PROVIDERS: ATTEND Internal Medicine Gastroenterology
DX: D64.9 Anemia, unspecified (principal); K59.00 Constipation, unspecified; K52.89 Other specified noninfective gastroenteritis and colitis; K64.8 Other hemorrhoids; I10 Essential (primary) hypertension; E11.9 Type 2 diabetes mellitus without complications; F17.210 Nicotine dependence, cigarettes, uncomplicated; Z79.84 Long term (current) use of oral hypoglycemic drugs; Z88.8 Allergy status to other drugs, medicaments and biological substances; Z88.0 Allergy status to penicillin; Z79.899 Other long term (current) drug therapy
CPT/HCPCS: 36415; 43235; 45380; 82962; 85025; 85610; 85730; 88304; J1200; J2250; J3010; J7030; 99152

== ENCOUNTER 2019-11-24 20:35 | Inpatient (IN) | payer OTHER ==
[~2019-11-24] VITALS: Ht 152.4 cm; Wt 55.2 kg
[~2019-11-24 20:35] MED LIST changes: -FLUMAZENIL 0.1 MG/ML INJ 10ML MDV IV ONE; -LIDOCAINE VISCOUS 2% 15ML UD ONE; -NALOXONE HCL 0.4 MG/ML VIAL ONE; -SODIUM CHLORIDE LOCK 10 ML ONE; -diphenhdrAMINE HCL 50 MG/1 ML VL ONE
[2019-11-24 22:19] LABS: Basophils # (auto) 0 uL; Eosinophils # (auto) 0 uL; Eosinophils % (auto) 0.1 % (0.0-7.0); Lymphocytes # (auto) 1.5 uL; Monocytes # (auto) 1.1 uL
[2019-11-24 22:21] LABS: Basophils % (auto) 0.1 % (0.0-2.0); Hematocrit 30.1 % (36.0-46.0); Hemoglobin 9.5 g/dL (12.2-16.2); Lymphocytes % (auto) 8.1 % (10.0-50.0); Mean Corpuscular Hemoglobin 22.8 pg (28.0-32.0); Mean Corpuscular Hgb Conc. 31.6 g/dL (32.0-36.0); Mean Corpuscular Volume 72.1 fL (80.0-100.0); Neutrophils # (auto) 15.7 uL; Neutrophils % (auto) 85.7 % (37.0-80.0); Platelet Count (auto) 494 10^3/uL (140-450); Red Blood Cells 4.17 10^6/uL (4.0-5.20); White Blood Cell 18.4 10^3/uL (4.4-10.8)
[2019-11-24 22:27] LABS: Red Cell Distribution Width 24.3 % (11.8-14.3)
[2019-11-24 22:40] LABS: Calcium 8.6 mg/dL (8.5-10.1); Chloride 106 mmol/L (98-107); INR 1.01 (0.9-1.15); Partial Thromboplastin Time 23.6 sec (23.64-32.05); Potassium 3.2 mmol/L (3.5-5.1); Sodium 139 mmol/L (136-145)
[2019-11-24 22:49] LABS: Alanine Aminotransferase 14 U/L (13-56); Albumin 2.4 g/dL (3.4-5.0); Alkaline Phosphatase 184 U/L (45-117); Anion Gap 7 (5-15); Aspartate Aminotransferase 17 U/L (15-37); BUN/Creatinine Ratio 31.9; Bilirubin, Total 0.4 mg/dL (0.2-1.0); Blood Urea Nitrogen 29 mg/dL (7-18); Carbon Dioxide 26 mmol/L (21-32); GFR African American 76 mL/min; GFR Non-African American 63 mL/min; Glucose 168 mg/dL (74-106); Magnesium 2.1 mg/dL (1.6-2.6); Total Protein 7.3 g/dL (6.4-8.2)
[2019-11-24] MEDS ORDERED: SODIUM CHLORIDE 0.9% 1,000 ML IV ONE (23:33)
[2019-11-24] MEDS ORDERED: ALBUTEROL SULF 2.5 MG/0.5ML(0.5%) NEB SOLN NEB ONE (23:45)
[2019-11-24] MEDS ORDERED: VANCOMYCIN PER PHARMACY 1,000 MG IV SCH (23:45)
[2019-11-24] MEDS ORDERED: IPRATROPIUM BROM 0.5 MG/2.5ML INH SOL NEB ONE (23:45)
[2019-11-24] MEDS ORDERED: POTASSIUM EFFERVESENT TAB 25 MEQ PO ONE (23:45)
[2019-11-24] MEDS ORDERED: IOHEXOL 350 MG/ML 100ML IJ ONE (23:49)
[2019-11-25] MEDS ORDERED: VANCOMYCIN 1GM/250ML 250 ML IV ONE (00:30)
[2019-11-25] MEDS ORDERED: levoFLOXacin 500MG 100 ML IV SCH (01:00)
[2019-11-25] MEDS ORDERED: ONDANSETRON HCL 4 MG/2 ML VIAL IV PRN (03:45)
[2019-11-25] MEDS ORDERED: DEXTROSE (50%) 50ML SYRG IV PRN (03:45)
[2019-11-25] MEDS ORDERED: DOCUSATE SOD 100 MG CAP PO PRN (03:45)
[2019-11-25] MEDS: SODIUM CHLORIDE 0.9% 1,000 ML IV SCH ×2 (03:52→16:58)
[2019-11-25 05:15] VITALS: BP 118/57
[2019-11-25] MEDS: ALBUTEROL SULF 2.5 MG/0.5ML(0.5%) NEB SOLN NEB SCH ×4 (06:08→23:33)
[2019-11-25] MEDS: InsuLIN REG 1unit/0.01ml Soln (100units/ml) SC SCH ×4 (07:51→22:14)
[2019-11-25] MEDS: ACCU-CHEK COMFORT CURVE STRIP VI SCH ×4 (07:52→22:07)
[2019-11-25 09:30] VITALS: BP 121/68
[2019-11-25] MEDS: ENOXAPARIN SOD 40 MG/0.4 ML SYRINGE SC SCH (10:00)
[2019-11-25] MEDS: LISINOPRIL 5 MG TAB PO SCH (10:00)
[2019-11-25] MEDS: CLOPIDOGREL BISULFATE 75 MG TAB PO SCH (10:00)
[2019-11-25] MEDS: ERYTHROMY OPTH OINT 5mg/gm 1gm OP SCH ×2 (10:00→21:57)
[2019-11-25] MEDS: FAMOTIDINE 20 MG TAB PO SCH ×2 (10:00→21:58)
[2019-11-25 10:10] VITALS: BP 121/68
[2019-11-25 12:23] VITALS: BP 121/67
--- NOTE | 2019-11-25 12:38 | NUR ---
PT ARRIVED TO FLOOR APPROX. 0930, A/OX 4. BED ALARM IN PLACE. VSS. FAMILY AT BEDSIDE. DENIES PAIN. MONITORING CLOSELY.
[2019-11-25 16:52] VITALS: BP 130/72
--- NOTE | 2019-11-25 19:10 | NUR ---
Received report from the Day Shift RN. Melton. Initial assessment done. Pt. alert, awake, oriented x 4, Malay speaking, with family members @ the bedside. Pt. @ 2L/NC continuous, no s/s of RR distress when resting, sob upon exertion. Lung expansion equal and breathing unlabored. Pt. denies pain when assessed. Pt. is pleasant and able to respond to verbal communication. PIV @ the LFA G # 20 with IVF of NS @ 75 ml./hr. continuous. Generally skin intact. Pt. is minimal to mod. assist with the activities of daily living. Maintained pt. safety in bed.
--- NOTE | 2019-11-25 19:30 | NUR ---
Received pt. from the Day Shift RN. Melton. Initial assessment done. Pt. with family member and visitors 2 the bedside. Provided privacy. Pt. calm and pleasant, denies pain @ this time. Pt. sitting @ the bed with family. IVF of NS @ 75 mls./hr. @ the LFA IV G # 20 , patent and intact. Pt. @ 2L/NC continuous and with mild sob, diminished lungs sounds throughout and generally weak. Maintained pt. safety. [place] Precaution.
--- NOTE | 2019-11-25 20:00 | NUR ---
Complete assessment done. Provided assistance in bed with Adl's. Family members/visitors @ the bedside, provided pt. privacy.
--- NOTE | 2019-11-25 21:57 | NUR ---
Due meds. given as scheduled and pt. able to swallow the meds. without difficulty.
[2019-11-25] MEDS: TEMAZEPAM 15 MG CAP PO PRN (21:59)
--- NOTE | 2019-11-25 21:59 | NUR ---
Pt. given Restoril 1 mg. po to relieve insomnia @ night. Pt. and daughter requested the sleeping pill to pt. sleep @ night. Keep pt. clean, dry, safe and sorting livestock worker bed. Call-light within pt.'s reach and bed alarm on. Pt. repositioned and turned to the sides then scooted HOB up @ 35 degrees angle. Pt. encouraged to sleep. Daughter went home.
[2019-11-25 22:01] VITALS: BP 123/56
[2019-11-25] MEDS: ACETAMINOPHEN 325 MG TAB PO PRN (22:45)
--- NOTE | 2019-11-25 22:45 | NUR ---
Pt. given Tylenol 650 mg. po for aching back pain of 3/10 scale, pt. returned to sleep.
--- NOTE | 2019-11-26 00:05 | NUR ---
Pt. turned and repositioned. Keep clean and comfortable.
--- NOTE | 2019-11-26 00:10 | NUR ---
Pt. sleeping and undisturbed. No s/s of discomfort. Keep warm and environment free from unnecesary noise.
[2019-11-26] MEDS: levoFLOXacin 250MG 50 ML IV SCH (01:43)
[2019-11-26] MEDS: VANCOMYCIN 500 MG in D5W 5% 100 ML IV SCH (01:43)
--- NOTE | 2019-11-26 02:00 | NUR ---
Pt. turned and repositioned with the help of the EXPERIMENTAL BOX TESTER, maintained pt. safety, bed alarms on and call-light within pt. reach.
--- NOTE | 2019-11-26 04:00 | NUR ---
Pt. turned and repositoned. Still drowsy and sleeping. No s/s of pain or discomfort. Keep safe and warm.
[2019-11-26 05:00] VITALS: BP 109/57
[2019-11-26] MEDS: SODIUM CHLORIDE 0.9% 1,000 ML IV SCH ×2 (06:19→19:45)
[2019-11-26] MEDS: InsuLIN REG 1unit/0.01ml Soln (100units/ml) SC SCH ×4 (06:24→22:05)
[2019-11-26] MEDS: ACCU-CHEK COMFORT CURVE STRIP VI SCH ×4 (06:24→22:05)
--- NOTE | 2019-11-26 06:24 | NUR ---
Pt. accucheck taken with result = 114, No coverage for Insulin given.
[2019-11-26 06:27] LABS: Hemoglobin 9.5 g/dL (12.2-16.2)
[2019-11-26 06:29] LABS: Basophils # (auto) 0.1 uL; Basophils % (auto) 0.5 % (0.0-2.0); Eosinophils # (auto) 0.1 uL; Eosinophils % (auto) 1.1 % (0.0-7.0); Hematocrit 29.7 % (36.0-46.0); Lymphocytes # (auto) 2.4 uL; Lymphocytes % (auto) 20.5 % (10.0-50.0); Mean Corpuscular Hemoglobin 23.1 pg (28.0-32.0); Mean Corpuscular Hgb Conc. 31.9 g/dL (32.0-36.0); Mean Corpuscular Volume 72.3 fL (80.0-100.0); Monocytes # (auto) 1.1 uL; Monocytes % (auto) 9.7 % (0.0-12.0); Neutrophils # (auto) 7.9 uL; Neutrophils % (auto) 68.2 % (37.0-80.0); Platelet Count (auto) 470 10^3/uL (140-450); Red Blood Cells 4.11 10^6/uL (4.0-5.20); White Blood Cell 11.6 10^3/uL (4.4-10.8)
[2019-11-26 06:36] LABS: Red Cell Distribution Width 24.7 % (11.8-14.3)
[2019-11-26 06:45] LABS: Calcium 8.6 mg/dL (8.5-10.1); Potassium 3.7 mmol/L (3.5-5.1)
[2019-11-26 09:00] VITALS: BP 121/71
[2019-11-26] MEDS: CLOPIDOGREL BISULFATE 75 MG TAB PO SCH (09:49)
[2019-11-26] MEDS: FAMOTIDINE 20 MG TAB PO SCH ×2 (09:49→22:04)
[2019-11-26] MEDS: ERYTHROMY OPTH OINT 5mg/gm 1gm OP SCH ×2 (09:49→22:00)
[2019-11-26] MEDS: LISINOPRIL 5 MG TAB PO SCH (09:50)
[2019-11-26] MEDS: ENOXAPARIN SOD 40 MG/0.4 ML SYRINGE SC SCH (09:50)
[2019-11-26] MEDS: ALBUTEROL SULF 2.5 MG/0.5ML(0.5%) NEB SOLN NEB SCH ×3 (09:56→19:40)
[2019-11-26 13:00] VITALS: BP 126/69
[2019-11-26] MEDS: ACETAMINOPHEN 325 MG TAB PO PRN (14:51)
--- NOTE | 2019-11-26 16:38 | NUR ---
assessment Patient is a 79 year old female who is alert and oriented. Patients cognitive abilities are intact. Prior to admission patient lived home with her son and functioned with assistance. Per patient she will return home to her prior living arrangements post discharge and family will transport her home. Patient informed me her PCP is Dr Dixon. Patient has a cane and fww for home use. Patient feels safe returning home on discharge. Patient may need home oxygen on discharge. I informed patient she will have an ABG prior to discharge to determine if she qualifies. I informed patient she has a right to speak to a social work job titles regarding all care. I informed patient she has a right to participate in any and all discharge planning. Patient has a POA and advanced directive. Patient verbalized understanding and agreed to discharge plan. Addendum: 11/26/19 at 1646 by Claudette STEELE Amended: Links added.
[2019-11-26 17:00] VITALS: BP 118/65
--- NOTE | 2019-11-26 19:20 | NUR ---
Opening Shift Note Assumed care of patient, awake and alert. No S/S of distress/SOB or pain. Instructed on POC and to call for assist PRN, will continue to monitor for changes Q1hr and PRN. PATIENT RESTING IN BED WITH PLENTY OF FAMILY AT BEDSIDE, CALL LIGHT AT HER SIDE, BED IN LOWEST POSITION WITH SIDE RALES UP X2.
[2019-11-26 20:00] VITALS: BP 102/47
[2019-11-26 21:05] VITALS: BP 102/47
[2019-11-26] MEDS: TEMAZEPAM 15 MG CAP PO PRN (22:05)
[2019-11-27] VITALS (7 sets, daily range): BP systolic 109–121; BP diastolic 56–81
[2019-11-27] MEDS: ALBUTEROL SULF 2.5 MG/0.5ML(0.5%) NEB SOLN NEB SCH ×4 (00:45→19:08)
[2019-11-27] MEDS: VANCOMYCIN 500 MG in D5W 5% 100 ML IV SCH (01:18)
[2019-11-27] MEDS: levoFLOXacin 250MG 50 ML IV SCH (02:25)
[2019-11-27 06:05] LABS: Basophils # (auto) 0 uL; Basophils % (auto) 0.4 % (0.0-2.0); Eosinophils # (auto) 0.3 uL; Hemoglobin 8.2 g/dL (12.2-16.2); Mean Corpuscular Volume 72.6 fL (80.0-100.0); Nucleated Red Blood Cells % 0.1 %
[2019-11-27 06:08] LABS: Eosinophils % (auto) 2.6 % (0.0-7.0); Hematocrit 25.9 % (36.0-46.0); Lymphocytes # (auto) 2.1 uL; Lymphocytes % (auto) 19.4 % (10.0-50.0); Mean Corpuscular Hemoglobin 23.1 pg (28.0-32.0); Mean Corpuscular Hgb Conc. 31.9 g/dL (32.0-36.0); Monocytes % (auto) 9.6 % (0.0-12.0); Neutrophils # (auto) 7.2 uL; Platelet Count (auto) 400 10^3/uL (140-450); Red Blood Cells 3.56 10^6/uL (4.0-5.20); White Blood Cell 10.6 10^3/uL (4.4-10.8)
[2019-11-27 06:11] LABS: Red Cell Distribution Width 24.3 % (11.8-14.3)
[2019-11-27] MEDS: InsuLIN REG 1unit/0.01ml Soln (100units/ml) SC SCH ×4 (06:38→22:00)
[2019-11-27] MEDS: ACCU-CHEK COMFORT CURVE STRIP VI SCH ×4 (06:38→22:18)
--- NOTE | 2019-11-27 07:48 | NUR ---
RECEIVED REPORT AND ASSUMED CARE OF PT. A/OX4. DENIED S/S ACUTE DISTRESS. UPDATE PT WITH POC. BED AT LOWEST POSITION. CALL LIGHT AND BELONGINGS WITHIN REACH. WILL CONT TO MONITOR.
[2019-11-27] MEDS: CLOPIDOGREL BISULFATE 75 MG TAB PO SCH ×2 (10:00→11:03)
[2019-11-27] MEDS: ENOXAPARIN SOD 40 MG/0.4 ML SYRINGE SC SCH (10:00)
[2019-11-27] MEDS: ERYTHROMY OPTH OINT 5mg/gm 1gm OP SCH ×2 (11:01→22:17)
[2019-11-27] MEDS: FAMOTIDINE 20 MG TAB PO SCH ×2 (11:02→22:17)
[2019-11-27] MEDS: LISINOPRIL 5 MG TAB PO SCH (11:04)
[2019-11-27] MEDS: SODIUM CHLORIDE 0.9% 1,000 ML IV SCH ×2 (11:05→22:18)
--- NOTE | 2019-11-27 12:38 | NUR ---
Respiratory note: AT BEDSIDE FOR MEDNEB TX. FOUND PT WITH NASAL CANNULA OFF. HR 113, RR 18, SPO2 87% ON ROOM AIR. MEDNEB TX GIVEN, PT TOLERATED WELL, NO ADVERSE REACTIONS NOTED. PLACED PT BACK ON 2LPM NASAL CANNULA. PROVIDED EDUCATION TO PT, INSTRUCTED PT TO KEEP OXYGEN ON AND DO NOT TAKE OFF CANNULA. PT'S FAMILY MEMBER VISITING AT BEDSIDE. WILL CONTINUE TO MONITOR.
[2019-11-27 15:34] LABS: BUN/Creatinine Ratio 20.6; Calcium 8.3 mg/dL (8.5-10.1); Potassium 4.2 mmol/L (3.5-5.1)
--- NOTE | 2019-11-27 19:03 | NUR ---
PT RESTING IN BED. NO S/S ACUTE DISTRESS NOTED. ENDORSED CARE TO NIGHT NURSE.
--- NOTE | 2019-11-27 19:05 | NUR ---
Opening Shift Note Assumed care of patient, awake and alert. No S/S of distress/SOB or pain. Instructed on POC and to call for assist PRN, will continue to monitor for changes Q1hr and PRN. PATIENT COMFORTABLE IN BED WITH GRANDDAUGHTER AT BEDSIDE, CALL LIGHT AT HER SIDE, BED IN LOWEST POSITION, SIDE RALES UP X2.
[2019-11-27] MEDS: TEMAZEPAM 15 MG CAP PO PRN (22:18)
--- NOTE | 2019-11-28 00:29 | NUR ---
PT WOKEN UP FOR SCHEDULED TX. PT STATED SHE DIDN'T WANT IT AT THIS TIME. PT RESTING WITH NO DISTRESS NOTED.
[2019-11-28] MEDS ORDERED: levoFLOXacin 750MG 150 ML IV SCH (01:00)
[2019-11-28] MEDS: VANCOMYCIN 500 MG in D5W 5% 100 ML IV SCH (01:23)
--- NOTE | 2019-11-28 04:47 | NUR ---
IV insertion IV access obtained, via clean sterile technique by inserting 22 gauge catheter at RIGHT AC after 1 attempt. IV secured properly. No trauma to site. Patient tolerated well. IV removal IV DC'd with clean sterile technique, catheter fully intact. Pressure dressing applied to site. Patient tolerated well. OLD IV INFILTRATED.
[2019-11-28 04:50] VITALS: BP 124/66
[2019-11-28 05:37] LABS: Basophils # (auto) 0 uL; Basophils % (auto) 0.3 % (0.0-2.0); Eosinophils # (auto) 0.3 uL; Hemoglobin 8.5 g/dL (12.2-16.2); Lymphocytes # (auto) 1.5 uL; Mean Corpuscular Hemoglobin 23.1 pg (28.0-32.0); Platelet Count (auto) 374 10^3/uL (140-450)
[2019-11-28 05:39] LABS: Eosinophils % (auto) 2.5 % (0.0-7.0); Hematocrit 26.6 % (36.0-46.0); Lymphocytes % (auto) 14.3 % (10.0-50.0); Mean Corpuscular Hgb Conc. 32.1 g/dL (32.0-36.0); Mean Corpuscular Volume 71.9 fL (80.0-100.0); Monocytes % (auto) 9.9 % (0.0-12.0); Neutrophils # (auto) 7.6 uL; Nucleated Red Blood Cells % 0.1 %; Red Blood Cells 3.69 10^6/uL (4.0-5.20); White Blood Cell 10.5 10^3/uL (4.4-10.8)
[2019-11-28 05:57] LABS: Calcium 7.9 mg/dL (8.5-10.1)
[2019-11-28 05:59] LABS: BUN/Creatinine Ratio 22.9
[2019-11-28 06:13] LABS: Red Cell Distribution Width 24.5 % (11.8-14.3)
[2019-11-28] MEDS: ACCU-CHEK COMFORT CURVE STRIP VI SCH ×2 (06:46→11:30)
[2019-11-28] MEDS: InsuLIN REG 1unit/0.01ml Soln (100units/ml) SC SCH ×2 (06:47→12:39)
[2019-11-28] MEDS: ALBUTEROL SULF 2.5 MG/0.5ML(0.5%) NEB SOLN NEB SCH ×3 (06:48→11:41)
--- NOTE | 2019-11-28 06:59 | NUR ---
INCREASED 02 TO 3.5LPM AFTER MN. TX., SPO2 94%. Addendum: 11/28/19 at 0700 by Lindsay Trevizo RT Amended: Links added.
[2019-11-28 08:30] VITALS: BP 134/74
[2019-11-28 09:17] VITALS: BP 124/66
[2019-11-28] MEDS: CLOPIDOGREL BISULFATE 75 MG TAB PO SCH (09:39)
[2019-11-28] MEDS: FAMOTIDINE 20 MG TAB PO SCH (09:39)
[2019-11-28] MEDS: ERYTHROMY OPTH OINT 5mg/gm 1gm OP SCH (09:39)
[2019-11-28] MEDS: LISINOPRIL 5 MG TAB PO SCH (09:41)
[2019-11-28] MEDS: ENOXAPARIN SOD 40 MG/0.4 ML SYRINGE SC SCH (09:42)
[2019-11-28] MEDS ORDERED: VANCOMYCIN 750mg/250ml 250 ML IV SCH (10:00)
--- NOTE | 2019-11-28 10:09 | NUR ---
PAGED NUT ORCHARDIST LOBSTERMAN.
--- NOTE | 2019-11-28 10:13 | NUR ---
SPOKE TO CHRISTINE RUG CLEANER HAND REGARDING HOME HEALTH AND HOME 02.
--- NOTE | 2019-11-28 11:25 | NUR ---
FAXED REQUIRED INFORMATION TO [facility] PER RESEARCH TEST ENGINE OPERATOR REQUEST.
--- NOTE | 2019-11-28 12:29 | NUR ---
Weekend safety companion-I received a page from Nurse Colin letting me know that this patient is to discharge home today with home health and home oxygen. I had nurse Colin fax the order to for oxygen and to [facility]. I spoke with Aide at [facility] and she said her front desk supervisor said they have to verify their contract with [facility] and wouldn't be able to give us an answer until tomorrow. I had nurse Colin fax home health order to [facility]. I called [facility] [phone] and spoke with Osvaldo, he said they will be able to accept this patient-I provided him with tracking number [id number]. I spoke with Nilsa from , she said portable oxygen tank will be delivered to bedside by 2pm. I relayed this information to nurse Colin.
[2019-11-28 12:30] VITALS: BP 116/59
[2019-11-28] MEDS: SODIUM CHLORIDE 0.9% 1,000 ML IV SCH (12:40)
--- NOTE | 2019-11-28 12:42 | NUR ---
Pt refused to get out of bed this a.m. with Landon Pt states she was out of bed earlier going to the bathroom. Pt also stated that she will be D/C' d later on this afternoon. Addendum: 11/28/19 at 1243 by Nichol Rose PT Amended: Links added.
--- NOTE | 2019-11-28 12:50 | NUR ---
FAXED REQUIRED INFORMATION TO [facility] PER INSOLE PRESSER REQUEST.
--- NOTE | 2019-11-28 13:06 | NUR ---
[facility] AT BEDSIDE TO DELIVER OXYGEN TANK.
--- NOTE | 2019-11-28 14:41 | NUR ---
SPOKE TO CHRISTINE MACHINE OPERATOR SLITTER TECHNICIAN STATED OK TO DISCHARGE PATIENT BECAUSE [facility] HAS ALREADY ACCEPTED.
--- NOTE | 2019-11-28 15:45 | NUR ---
SPOKE TO [facility] STATED PAT RECIEVED FAXED PAPER WORK. SPOKE TO CHRISTINE FROM TELEGRAPHIC TYPEWRITER OPERATOR STATED [facility] HAS TEMPORARY AUTHORIZATION AND SHE WILL FOLLOW UP TOMORROW.
--- NOTE | 2019-11-28 16:25 | NUR ---
PATIENT REFUSED WOUND PHOTO OF UPPER LIP SCAB.
--- NOTE | 2019-11-28 16:30 | NUR ---
Discharge instructions given as ordered. Encourage to follow up with PMD as instructed. Instructed to take new prescriptions as ordered and informed of home o2 agency [facility] to follow up. All questions and concerns addressed. Patient verbalized understanding. Medication reconciliation form completed and copy given to patient. IV removed with catheter intact, pressure dressing applied. Patient taken to vehicle via wheelchair with all personal belongings, accompanied by staff and family member. No distress noted at time of departure.
== END 2019-11-28 16:30 | disposition home health service (06) | DRG 871 ==
LOC: ER 20:35 → OVERFLOW 20:36 → CENTRAL 11-25 09:40
PROVIDERS: ADMIT Nurse Practitioner; ATTEND Family Medicine
DX: A41.9 Sepsis, unspecified organism (principal); J18.9 Pneumonia, unspecified organism; E44.0 Moderate protein-calorie malnutrition; J44.1 Chronic obstructive pulmonary disease with (acute) exacerbation; J44.0 Chronic obstructive pulmonary disease with (acute) lower respiratory infection; E87.6 Hypokalemia; H10.33 Unspecified acute conjunctivitis, bilateral; E11.9 Type 2 diabetes mellitus without complications; I10 Essential (primary) hypertension; J44.9 Chronic obstructive pulmonary disease, unspecified; F17.210 Nicotine dependence, cigarettes, uncomplicated; Z82.49 Family history of ischemic heart disease and other diseases of the circulatory system; Z87.11 Personal history of peptic ulcer disease; Z82.61 Family history of arthritis; Z68.23 Body mass index [BMI] 23.0-23.9, adult; Z88.0 Allergy status to penicillin; Z88.1 Allergy status to other antibiotic agents
CPT/HCPCS: 36415; 36600; 71045; 71275; 80048; 80053; 80202; 82550; 82805; 82962; 83605; 83735; 83880; 84484; 85025; 85379; 85384; 85610; 85730; 87040; 87070; 87077; 87205; 87804; 93970; 94640; 97116; 97530; 99291; G0378; J1815; J1956; J7060

== ENCOUNTER 2020-01-17 16:39 | Inpatient (IN) | payer OTHER ==
[~2020-01-17] VITALS: Ht 154.9 cm; Wt 51.1 kg
[2020-01-17] MEDS ORDERED: MORPHINE SULF INJ 2 MG/ML SYRINGE 1ML IV ONE (17:15)
[2020-01-17 17:42] LABS: Basophils # (auto) 0 10 ^3/uL (0-0.2); Basophils % (auto) 0.3 % (0.0-2.0); Eosinophils # (auto) 0.3 10 ^3/uL (0-0.8); Eosinophils % (auto) 1.7 % (0.0-7.0); Hematocrit 32.1 % (36.0-46.0); Hemoglobin 10.1 g/dL (12.2-16.2); Lymphocytes # (auto) 1.1 10 ^3/uL (0.4-5.4); Lymphocytes % (auto) 7.2 % (10.0-50.0); Mean Corpuscular Hemoglobin 23.3 pg (28.0-32.0); Mean Corpuscular Hgb Conc. 31.5 g/dL (32.0-36.0); Mean Corpuscular Volume 74.1 fL (80.0-100.0); Monocytes # (auto) 0.9 10 ^3/uL (0-1.3); Monocytes % (auto) 6.1 % (0.0-12.0); Neutrophils # (auto) 12.7 10 ^3/uL (1.6-8.6); Neutrophils % (auto) 84.7 % (37.0-80.0); Platelet Count (auto) 393 10^3/uL (140-450); Red Blood Cells 4.33 10^6/uL (4.0-5.20); Red Cell Distribution Width 20.4 % (11.8-14.3)
[2020-01-17] MEDS ORDERED: ONDANSETRON HCL 4 MG/2 ML VIAL IV ONE (17:45)
[2020-01-17 18:05] LABS: Albumin 2.8 g/dL (3.4-5.0); BUN/Creatinine Ratio 25.8; Calcium 8.5 mg/dL (8.5-10.1); Potassium 3.7 mmol/L (3.5-5.1)
[2020-01-17 18:07] LABS: Bilirubin, Total 0.2 mg/dL (0.2-1.0); Total Protein 6.7 g/dL (6.4-8.2)
[2020-01-17 18:52] LABS: INR 1.01 (0.9-1.15); Partial Thromboplastin Time 22.9 sec (23.64-32.05)
[2020-01-17] MEDS ORDERED: IOHEXOL 350 MG/ML 100ML IJ ONE (19:15)
[2020-01-17] MEDS ORDERED: AZITHROMYCIN 500MG/ 250ML 250 ML IV ONE (19:45)
[2020-01-17 20:43] LABS: Urine WBC None Seen /hpf (0 - 5)
[2020-01-17 21:10] LABS: Urine Bacteria FEW /hpf (None Seen); Urine Blood Negative /uL (Negative); Urine Specific Gravity 1.036 (1.001-1.035)
[2020-01-17] MEDS ORDERED: SODIUM CHLORIDE 0.9% 1,000 ML IV SCH (21:29)
[2020-01-17] MEDS ORDERED: ACETAMINOPHEN 325 MG TAB PO PRN (21:30)
[2020-01-17] MEDS ORDERED: ALBUTEROL SULF 2.5 MG/0.5ML(0.5%) NEB SOLN NEB PRN (21:30)
[2020-01-17] MEDS ORDERED: IPRATROPIUM BROM 0.5 MG/2.5ML INH SOL NEB PRN (21:30)
[2020-01-17] MEDS ORDERED: DOCUSATE SOD 100 MG CAP PO PRN (21:30)
[2020-01-17] MEDS ORDERED: DEXTROSE (50%) 50ML SYRG IV PRN (21:30)
[2020-01-17] MEDS: ONDANSETRON HCL 4 MG/2 ML VIAL IV PRN (22:24)
[2020-01-17] MEDS: MORPHINE SULFATE 4 MG/ML SYR/VIAL IV PRN (22:24)
--- NOTE | 2020-01-17 22:30 | NUR ---
MS admit from [facility] admitted to tele/MS after SBAR received. Patient oriented to primary RN, unit, room, bed, and unit policies regarding patient care and visiting hours. Patient weighed by bedscale and encouraged to call if they need something. All questions and concerns addressed, patient verbalized understanding. Patient placed on 2lpm via NC. Phillips intact, patent, draining to gravity and below level of bladder. No S/S of distress/SOB or pain. Instructed on POC and to call for assist PRN, will continue to monitor for changes Q1hr and PRN. Bed locked in lowest position and bed rails up x2. Call light within reach.
[2020-01-17 22:45] VITALS: BP 105/59
--- NOTE | 2020-01-17 22:58 | NUR ---
Respiratory note: PT DOES NOT APPEAR TO BE IN DISTRESS AT THIS TIME. PLACED PT ON 1L NC CANNULA AT THIS TIME. PT WEARS O2 AT HOME AND STATES SHE DOES NOT USE RESPIRATORY MEDICATION AT HOME. WILL CONTINUE TO MONITOR.
[2020-01-17] MEDS ORDERED: HYDR-4833 PO (23:01)
[2020-01-17 23:02] VITALS: BP 110/53
[2020-01-18] MEDS: InsuLIN REG 1unit/0.01ml Soln (100units/ml) SC SCH ×6 (04:00→22:12)
[2020-01-18] MEDS: ACCU-CHEK COMFORT CURVE STRIP VI SCH ×6 (04:02→22:09)
[2020-01-18] MEDS: MORPHINE SULFATE 4 MG/ML SYR/VIAL IV PRN (04:03)
[2020-01-18] MEDS: ONDANSETRON HCL 4 MG/2 ML VIAL IV PRN (04:03)
[2020-01-18 05:00] VITALS: BP 98/53
[2020-01-18 05:33] LABS: Basophils # (auto) 0 10 ^3/uL (0-0.2); Basophils % (auto) 0.3 % (0.0-2.0); Eosinophils # (auto) 0.2 10 ^3/uL (0-0.8); Eosinophils % (auto) 1.5 % (0.0-7.0); Hemoglobin 9.4 g/dL (12.2-16.2); Mean Corpuscular Hemoglobin 23.9 pg (28.0-32.0); Mean Corpuscular Hgb Conc. 32.5 g/dL (32.0-36.0)
[2020-01-18 05:35] LABS: Lymphocytes # (auto) 1.5 10 ^3/uL (0.4-5.4); Mean Corpuscular Volume 73.5 fL (80.0-100.0); Monocytes % (auto) 9.2 % (0.0-12.0); Neutrophils # (auto) 8.5 10 ^3/uL (1.6-8.6); Platelet Count (auto) 323 10^3/uL (140-450); Red Blood Cells 3.94 10^6/uL (4.0-5.20); White Blood Cell 11.2 10^3/uL (4.4-10.8)
[2020-01-18 05:47] LABS: BUN/Creatinine Ratio 28.9; Calcium 7.9 mg/dL (8.5-10.1); Potassium 3.8 mmol/L (3.5-5.1)
[2020-01-18 08:00] VITALS: BP 100/56
[2020-01-18 08:41] VITALS: BP 100/56
[2020-01-18] MEDS ORDERED: ADENOSINE 37 MG in GIVE UN-DILUTED 0 ML IV STA (09:31)
--- NOTE | 2020-01-18 09:55 | NUR ---
PATIENT OFF FLOOR TO STRESS TEST
[2020-01-18] MEDS: LISINOPRIL 5 MG TAB PO SCH (10:00)
[2020-01-18] MEDS ORDERED: cefTRIAXone 1GM/50ML D5W 50 ML IV SCH (10:00)
--- NOTE | 2020-01-18 10:30 | NUR ---
DR CAMACHO ON UNIT
[2020-01-18 10:47] VITALS: BP 92/47
--- NOTE | 2020-01-18 10:51 | NUR ---
SPOKE WITH PATIENTS DAUGHTER, OSCAR, AND PROVIDED HER WITH UPDATE
--- NOTE | 2020-01-18 11:18 | NUR ---
DR MCMAHON ON UNIT. INFORMED DR OF PATIENTS ALLERGY TO CEPHALEXIN, DR WILL PLACE NEW ORDER FOR ANTIBIOTICS. CARRIED OUT ORDERS RECEIVED
[2020-01-18] MEDS: FOLIC ACID 1 MG TAB PO SCH (11:53)
--- NOTE | 2020-01-18 11:55 | NUR ---
PATIENT BACK IN ROOM FROM STRESS TEST. VS 99.0, 93HR, 16, 95%, 109/52. PATIENT COMPLAINING OF LEFT HIP PAIN. REPOSITIONED PATIENT AND WILL PROVIDE PAIN MEDICATION.
[2020-01-18] MEDS: HYDROcodone-ACET 5/325MG TAB PO PRN ×2 (12:17→23:45)
[2020-01-18 13:00] VITALS: BP 109/52
--- NOTE | 2020-01-18 13:22 | NUR ---
PER DR MCMAHON ORDER, PLACED PATIENT ON CONS CARB DIET
[2020-01-18] MEDS ORDERED: DEXTROSE (50%) 50ML SYRG IV PRN (14:00)
[2020-01-18] MEDS ORDERED: levoFLOXacin 500MG 100 ML IV ONE (14:00)
[2020-01-18] MEDS: SODIUM CHLORIDE 0.9% 1,000 ML IV SCH (14:06)
[2020-01-18] MEDS ORDERED: LISI-275 PO (14:27)
[2020-01-18] MEDS ORDERED: TRAZ50TA2 PO (14:39)
--- NOTE | 2020-01-18 16:00 | NUR ---
PATIENTS ARM IS ITCHY AND RED AT IV SITE AFTER RECEIVING IV LEVAQUIN. ANTIBIOTIC STOPPED, I INFORMED PHARMACY, THEY SAID TO APPLY COLD COMPRESS AND MONITOR.
--- NOTE | 2020-01-18 16:19 | NUR ---
INFORMED DR MCMAHON THAT PATIENTS ARM AT IV SITE IS ITCHY AND RED AFTER STARTING ON LEVAQUIN. RECEIVED ORDERS FROM DR MCMAHON AND CARRIED OUT
--- NOTE | 2020-01-18 16:22 | NUR ---
COLD COMPRESS APPLIED TO PATIENTS ARM DUE TO ITCHINESS FROM ANTIBIOTIC. PATIENT STATING SITE IS ALREADY FEELING BETTER. WILL CONTINUE TO MONITOR.
--- NOTE | 2020-01-18 19:44 | NUR ---
REPORT GIVEN TO EMILY CARREON RN.
--- NOTE | 2020-01-18 20:00 | NUR ---
Opening Shift Note Assumed care of patient, awake and alert. No S/S of distress/SOB or pain. POC discussed and questions answered. Bed is locked in lowest position with side rails up x4, per patients request. Call light is within reach and patient encouraged to call for assistance PRN, will continue to monitor for changes Q1hr and PRN.
[2020-01-18] MEDS: MORPHINE SULF INJ 2 MG/ML SYRINGE 1ML IV PRN (20:10)
[2020-01-18 22:00] VITALS: BP 95/46
--- NOTE | 2020-01-18 22:00 | NUR ---
Bed bath given. Patient tolerated well, will continue to monitor
[2020-01-18] MEDS: AZTREONAM 1GM INJ 1 GM in D5W 5% 50 ML IV SCH (22:08)
[2020-01-19] MEDS: MORPHINE SULF INJ 2 MG/ML SYRINGE 1ML IV PRN ×2 (02:25→06:26)
--- NOTE | 2020-01-19 02:31 | NUR ---
IV removal IV DC'd with clean sterile technique, catheter fully intact. Pressure dressing applied to site. Patient tolerated well.
--- NOTE | 2020-01-19 02:52 | NUR ---
IV insertion IV access obtained, via clean sterile technique by inserting 22 gauge catheter at left forearm after 3 attempt(s). IV secured properly. No trauma to site. Patient tolerated well.
[2020-01-19] MEDS: SODIUM CHLORIDE 0.9% 1,000 ML IV SCH ×2 (04:33→18:36)
[2020-01-19] MEDS: HYDROcodone-ACET 5/325MG TAB PO PRN ×4 (04:49→21:32)
[2020-01-19 05:00] VITALS: BP 97/52
[2020-01-19 05:55] LABS: Basophils # (auto) 0 10 ^3/uL (0-0.2); Basophils % (auto) 0.3 % (0.0-2.0); Eosinophils # (auto) 0.2 10 ^3/uL (0-0.8); Eosinophils % (auto) 1.8 % (0.0-7.0); Hemoglobin 9.5 g/dL (12.2-16.2); Lymphocytes # (auto) 1.8 10 ^3/uL (0.4-5.4); Lymphocytes % (auto) 17.9 % (10.0-50.0); Mean Corpuscular Hemoglobin 24.2 pg (28.0-32.0); Mean Corpuscular Hgb Conc. 32.7 g/dL (32.0-36.0); Monocytes # (auto) 1.1 10 ^3/uL (0-1.3); Monocytes % (auto) 10.6 % (0.0-12.0); Neutrophils # (auto) 7.1 10 ^3/uL (1.6-8.6); Neutrophils % (auto) 69.4 % (37.0-80.0); Nucleated Red Blood Cells % 0.1 %; Platelet Count (auto) 293 10^3/uL (140-450); Red Blood Cells 3.92 10^6/uL (4.0-5.20); Red Cell Distribution Width 19.9 % (11.8-14.3); White Blood Cell 10.2 10^3/uL (4.4-10.8)
[2020-01-19] MEDS: AZTREONAM 1GM INJ 1 GM in D5W 5% 50 ML IV SCH ×3 (06:11→21:31)
[2020-01-19 06:24] LABS: BUN/Creatinine Ratio 30.2; Calcium 8.1 mg/dL (8.5-10.1); Magnesium 1.9 mg/dL (1.6-2.6)
--- NOTE | 2020-01-19 06:37 | NUR ---
PAIN PATIENT COMPLAINING OF PAIN IN LEFT HIP WELL HER BACK. MORPHINE GIVEN AT THIS TIME FOR LEFT HIP PAIN AND HOT PACKS PLACED ON PATIENTS BACK FOR TEMPORARY PAIN RELIEF. WILL CONTINUE TO MONITOR.
[2020-01-19] MEDS: ACCU-CHEK COMFORT CURVE STRIP VI SCH ×4 (06:53→21:31)
[2020-01-19] MEDS: InsuLIN REG 1unit/0.01ml Soln (100units/ml) SC SCH ×4 (06:53→21:31)
[2020-01-19 08:00] VITALS: BP 108/87
--- NOTE | 2020-01-19 08:30 | NUR ---
PATIENT OFF FLOOR FOR THORACENTESIS
[2020-01-19 09:00] VITALS: BP 108/67
--- NOTE | 2020-01-19 09:27 | NUR ---
PATIENT RETURNED TO ROOM FROM THORACENTESIS. VS 98.0, 86, 18, 93%, 107/56. PATIENT COMFORTABLE, WILL CONTINUE TO MONITOR.
[2020-01-19] MEDS ORDERED: levoFLOXacin 750MG 150 ML IV SCH (10:00)
[2020-01-19] MEDS: LISINOPRIL 5 MG TAB PO SCH (10:00)
[2020-01-19] MEDS ORDERED: levoFLOXacin 500MG 100 ML IV SCH (10:00)
[2020-01-19] MEDS: AZITHROMYCIN 500MG/ 250ML 250 ML IV SCH (10:16)
[2020-01-19] MEDS: FOLIC ACID 1 MG TAB PO SCH (10:16)
[2020-01-19] MEDS: PANTOPRAZOLE 40 MG TAB PO SCH (10:16)
--- NOTE | 2020-01-19 10:40 | NUR ---
WOUND CARE NOTE: IN TO SEE PATIENT AT THIS TIME FOR SKIN INTEGRITY MONITORING. PATIENT ADMITTED TO [facility] WITH DIAGNOSIS OF LEFT HIP FRACTURE. CURRENT ADDI SCORE IS 13. PATIENT IS BEDBOUND, ABLE TO ASSIST WITH HER TURNING/REPOSITIONING, BUT IS MAX ASSIST AT THIS TIME D/T HIP FRACTURE. SHE IS SCHEDULED FOR SURGERY TOMORROW AM. PATIENT IS WOUND FREE AT THIS TIME, WITH PINK, BLANCHABLE SKIN NOTED TO ALL BONY PROMINENCES. APPLIED LUCIANO FOAM BOOTS TO BILATERAL FEET/HEELS, OPTIFOAM GENTLE SACRAL DRESSING PREVENTATIVE TO UPPER MEDIAL SACRUM. RECOMMEND: FREQUENT TURN SCHEDULE Q 2 HOURS, PRN CONDITION PERMITS, WITH PRESSURE REDISTRIBUTION USING PILLOWS/WEDGES- AVOIDING LEFT SIDE POSITIONING, BID/PRN APPLICATION WITH MOISTURE BARRIER CREAM, OPTIFOAM GENTLE SACRAL DRESSING PREVENTATIVE, LUCIANO FOAM BOOTS TO BILATERAL FEET/HEELS, DIETARY CONSULT, SKIN/WOUND CARE PLAN, CONTINUED MONITORING BY WOUND CARE TEAM.
--- NOTE | 2020-01-19 11:05 | NUR ---
DR MCMAHON BEDSIDE WITH PATIENT
--- NOTE | 2020-01-19 11:35 | NUR ---
DR CAMACHO BEDSIDE WITH PATIENT
[2020-01-19 13:53] VITALS: BP 95/59
--- NOTE | 2020-01-19 14:32 | NUR ---
assessment Patient is a 79 year old female who is alert and oriented. Patients cognitive abilities are intact. Prior to admission patient lived home with family and functioned independently. Patient informed me she is able to care for her own ADLs. Per patient she will return home to her prior living arrangements post discharge and family will transport her home. Patient informed me the only way she will do SNF is if she cannot walk on discharge. Patient has a fww, wheelchair, cane and 02 for home use. Patients PCP is Dr Dixon. Patient informed me she fell at home at night. Patient will be evaluated by PT after surgery for home health needs or SNF needs. I informed patient she has a right to speak to a nursing home social worker regarding all care. I informed patient she has a right to participate in any and all discharge planning. Patient has a POA and advanced directive. Patient verbalized understanding and agreed to discharge plan. Addendum: 01/19/20 at 1435 by Claudette STEELE Amended: Links added.
--- NOTE | 2020-01-19 14:50 | NUR ---
Respiratory note: Assessed pt for prn medneb tx. HR 118, RR 18, SPO2 95%. Breath sounds clear/diminished. No s/s of respiratory distress noted. Medneb tx not indicated at this time. Advised pt to push call light and ask for RT if feeling SOB.
--- NOTE | 2020-01-19 15:01 | NUR ---
Nutrition Assessment Notes Please refer to link for full assessment notes. Est energy needs: 8916-2161 kcals (12-15 kcal/kgBW) Est protein needs: 63-76 gms/day (1.0-1.2 gm/kgBW) Will continue to monitor and reassess prn. Addendum: 01/19/20 at [address] Amended: Links added.
[2020-01-19 16:49] VITALS: BP 100/65
[2020-01-19 18:57] LABS: Urine Bacteria FEW /hpf (None Seen); Urine Blood Negative /uL (Negative); Urine Mucus FEW (None Seen); Urine Specific Gravity 1.019 (1.001-1.035); Urine WBC 12 /hpf (0 - 5)
--- NOTE | 2020-01-19 20:00 | NUR ---
Opening Shift Note Assumed care of patient, awake and alert. No S/S of distress/SOB or pain. Instructed on POC and to call for assist PRN, will continue to monitor for changes Q1hr and PRN.
--- NOTE | 2020-01-19 21:32 | NUR ---
Pt complaining of pain Pt states pain is on and off from various parts of the body. Patient requesting norco. patient states That is what works for her. Will continue to monitor.
[2020-01-19 22:00] VITALS: BP_SYST 109; BP_SYST 89; BP_DIAS 49; BP_DIAS 69
--- NOTE | 2020-01-19 22:00 | NUR ---
BP REASSESSED INITIAL BP WAS 89/49. PATIENT ASYMPTOMATIC AT THIS TIME. BP REASSESSED AT 109/69. WILL CONTINUE TO MONITOR.
[2020-01-19] MEDS ORDERED: MAGNESIUM SULFATE 1GM/100ML 100 ML IV ONE (22:15)
[2020-01-19] MEDS: TEMAZEPAM 15 MG CAP PO PRN (22:32)
--- NOTE | 2020-01-19 22:46 | NUR ---
PT STATES PAIN LEVEL HAS DECREASED PT STATES PAIN IS TOLERABLE AT THIS TIME AND WOULD RATHER HAVE A SLEEPING PILL INSTEAD. ORDER OBTAINED AND MEDICATION ADMINISTERED.
--- NOTE | 2020-01-19 23:00 | NUR ---
BP RECHECKED PT'S BP RECHECKED AT 116/66. PATIENT STABLE AT THIS TIME. WILL CONTINUE TO MONITOR.
--- NOTE | 2020-01-19 23:35 | NUR ---
RT NOTE: PT ASSESSED BY RT @ THIS TIME. PRN TX NOT INDICATED. SPO2 92% ON 2L NC, HR 88, RR 22, DIMINISHED BS AUSCULTATED. NO SOB OR DISTRESS NOTED.
[2020-01-20 05:00] VITALS: BP 119/63
[2020-01-20] MEDS: AZTREONAM 1GM INJ 1 GM in D5W 5% 50 ML IV SCH ×3 (05:31→21:51)
[2020-01-20 06:24] LABS: Basophils # (auto) 0 10 ^3/uL (0-0.2); Eosinophils # (auto) 0.5 10 ^3/uL (0-0.8); Hematocrit 29.1 % (36.0-46.0); Monocytes # (auto) 1.1 10 ^3/uL (0-1.3); Platelet Count (auto) 287 10^3/uL (140-450); Red Cell Distribution Width 19.9 % (11.8-14.3)
[2020-01-20 06:26] LABS: Basophils % (auto) 0.5 % (0.0-2.0); Hemoglobin 9.5 g/dL (12.2-16.2); Lymphocytes # (auto) 1.4 10 ^3/uL (0.4-5.4); Mean Corpuscular Hemoglobin 24.4 pg (28.0-32.0); Mean Corpuscular Hgb Conc. 32.7 g/dL (32.0-36.0); Mean Corpuscular Volume 74.7 fL (80.0-100.0); Monocytes % (auto) 10.6 % (0.0-12.0); Neutrophils % (auto) 69.9 % (37.0-80.0)
[2020-01-20] MEDS: InsuLIN REG 1unit/0.01ml Soln (100units/ml) SC SCH ×4 (06:28→21:52)
[2020-01-20] MEDS: ACCU-CHEK COMFORT CURVE STRIP VI SCH ×4 (06:28→21:51)
--- NOTE | 2020-01-20 06:48 | NUR ---
PATIENT TAKEN DOWN TO OR.
[2020-01-20] MEDS ORDERED: CLINDAMYCIN 600MG IV 50 ML IV ONE (07:15)
--- NOTE | 2020-01-20 07:40 | NUR ---
Opening shift note Assumed care from NOC SHAMA Timmons.Patient is down for a procedure.
--- NOTE | 2020-01-20 07:55 | NUR ---
Patient brought back from OR Patient did not have surgery done, per OR nurse patient needs to be cleared by pulmonology for surgery and needs to have 1 more day of antibiotics. Per OR nurse surgery is scheduled for tomorrow morning.
--- NOTE | 2020-01-20 08:16 | NUR ---
called MD Left message for Dr. Pavon regarding pulmonology clearance for surgery, awaiting call back.
[2020-01-20 09:00] VITALS: BP 108/58
[2020-01-20] MEDS: SODIUM CHLORIDE 0.9% 1,000 ML IV SCH ×2 (09:40→23:12)
[2020-01-20] MEDS: PANTOPRAZOLE 40 MG TAB PO SCH (09:41)
[2020-01-20] MEDS: FOLIC ACID 1 MG TAB PO SCH (09:41)
[2020-01-20] MEDS: AZITHROMYCIN 500MG/ 250ML 250 ML IV SCH (09:41)
[2020-01-20] MEDS: MORPHINE SULF INJ 2 MG/ML SYRINGE 1ML IV PRN (09:42)
--- NOTE | 2020-01-20 11:15 | NUR ---
IV insertion IV access obtained, via clean sterile technique by inserting 20 gauge catheter at right upper arm after 4 attempts. IV secured properly. No trauma to site. Patient tolerated well.
--- NOTE | 2020-01-20 11:40 | NUR ---
Physician rounding Dr. Aggarwal at bedside. Updated her on patient status. Per MD patient will have surgery tomorrow at 0715, she has also tried contacting Dr. Pavon and is awaiting call back for clearance pulmonology ochoa. Per Dr. Aggarwal patient can eat and she is to remain NPO after midnight for surgery tomorrow, i will follow through with MD orders.
[2020-01-20 13:00] VITALS: BP 96/57
--- NOTE | 2020-01-20 13:30 | NUR ---
Received call back Dr. Pavon called back and stated that patient is clear from a pulmonary stand point for surgery.
--- NOTE | 2020-01-20 15:30 | NUR ---
Call from OR Per OR a communication order needs to placed that states the patient has been cleared by pulmonology.
[2020-01-20] MEDS: HYDROcodone-ACET 5/325MG TAB PO PRN ×2 (16:32→21:58)
[2020-01-20 17:00] VITALS: BP 98/56
--- NOTE | 2020-01-20 17:58 | NUR ---
Respiratory note: ASSESSED PT FOR PRN TX PT WAS AWAKE AND ALERT, NO RESP DISTRESS NOTED. HR 104, RR 20, SPO2 88% ON ROOM AIR. BS ARE CLEAR, NO INDICATION FOR TX AT THIS TIME. IT DID PLACE PT ON 2L N/C. PATIENT KNOWS TO HAVE RT PAGED IF TX IS NEEDED.
--- NOTE | 2020-01-20 18:50 | NUR ---
Closing shift note Endorsed care to NOC SHAMA Timmons.No s/s of distress noted at this time.
[2020-01-20 19:47] VITALS: BP 98/56
[2020-01-20 22:00] VITALS: BP 104/61
--- NOTE | 2020-01-20 22:00 | NUR ---
PATIENT STATING PAIN AT 6/10 PATIENT REQUESTING PAIN MEDICATION. PAIN MEDICATION PROVIDED PER PROTOCOL. WILL CONTINUE TO MONITOR.
--- NOTE | 2020-01-20 23:00 | NUR ---
PATIENT STATES PAIN HAS DECREASED PATIENT STATES PAIN MEDICATION HAS HELPED. PATIENT REQUESTING SLEEPING PILL AT THIS TIME. PATIENT PROVIDED MEDICATION PER PROTOCOL. WILL CONTINUE TO MONITOR.
[2020-01-20] MEDS: TEMAZEPAM 15 MG CAP PO PRN (23:11)
[2020-01-21 05:00] VITALS: BP 108/56
[2020-01-21] MEDS: AZTREONAM 1GM INJ 1 GM in D5W 5% 50 ML IV SCH ×3 (05:46→23:16)
[2020-01-21] MEDS: ACCU-CHEK COMFORT CURVE STRIP VI SCH ×4 (06:08→21:19)
[2020-01-21] MEDS: InsuLIN REG 1unit/0.01ml Soln (100units/ml) SC SCH ×4 (06:09→21:20)
[2020-01-21] MEDS ORDERED: CLINDAMYCIN 600MG IV 50 ML IV ONE (07:12)
[2020-01-21] MEDS ORDERED: MEPERIDINE HCL (25 MG/ML) 1ML VIAL ONE (07:40)
[2020-01-21] MEDS ORDERED: fentaNYL CITRATE 100 MCG/2 ML VL ONE (07:40)
[2020-01-21] MEDS ORDERED: MIDAZOLAM HCL 1MG/1ML-2 ML VIAL ONE (07:40)
[2020-01-21] MEDS ORDERED: DexAMETHasone SOD PHOS 10MG/1ML VIAL INJ ONE (08:06)
[2020-01-21] MEDS ORDERED: ETOMIDATE (2MG/ML) 20ML VIAL IV ONE (08:06)
--- NOTE | 2020-01-21 09:10 | NUR ---
RT CALLED TO RECOVERY TO EXTUBATE PT PER DR. TREE VEGA. PT PLACED ON VENT ON CPAP MODE. TIDAL VOLUMES 525, RR 24 NO DISTRESS NOTED. EXTUBATED AND PLACED ON 10L SPO2 99% NO DISTRESS NOTED. BS ARE COARSE. SX WITH SMALL RETURN. NO STRIDOR NOTED. WILL CONTINUE TO MONITOR PT.
[2020-01-21] MEDS ORDERED: LABETALOL HCL 5 MG/ML 4ML SYRINGE IV PRN (09:15)
[2020-01-21] MEDS ORDERED: ONDANSETRON HCL 4 MG/2 ML VIAL IV PRN (09:15)
[2020-01-21] MEDS ORDERED: MIDAZOLAM HCL 1MG/1ML-2 ML VIAL IV PRN (09:15)
[2020-01-21] MEDS ORDERED: ACCU-CHEK COMFORT CURVE STRIP VI ONE (09:15)
[2020-01-21] MEDS ORDERED: MORPHINE SULFATE 4 MG/ML SYR/VIAL IV PRN (09:15)
[2020-01-21 09:26] LABS: INR 1.05 (0.9-1.15)
--- NOTE | 2020-01-21 09:50 | NUR ---
MOISES TOLEDO received to [facility] from recovery s/p LT hip intertrocantheric nailing via hospital bed on security monitor, and portable 02. Patient connected to unit monitoring and oxygen, and weighed by bedscale. Patient awake annd oriented x2, re-oriented to time and situation. No S/S of SOB/distress, patient saturation 91% at 2 LPM oxygen via nasal cannula. LT hip dressing dry and intact. Patient oriented to Elina ta RN, unit, room, bed, and unit policies regarding patient care and visiting hours. All questions and concerns addressed, patient verbalized understanding. Bed locked on low position, side rails up x2, bed alarms on at all times, call parra within reach, instructed to call for needed assistance. Will continue to monitor.
[2020-01-21 10:00] VITALS: BP 112/92
[2020-01-21] MEDS ORDERED: MORPHINE SULF INJ 2 MG/ML SYRINGE 1ML IV PRN (10:15)
[2020-01-21] MEDS ORDERED: NITROGLYCERIN 0.4 MG SL TAB SL PRN (10:15)
--- NOTE | 2020-01-21 10:24 | NUR ---
PO medications not given, patient not awake and safe enough to swallow.
--- NOTE | 2020-01-21 10:50 | NUR ---
Patient more awake, alert and oriented x4 , no complaints at this time. Will continue to monitor.
--- NOTE | 2020-01-21 11:26 | NUR ---
Received call from patient's daughter Betty who is able to provide password, updated on patient's status and POC, verbalized understanding, all questions and concerns addressed.
--- NOTE | 2020-01-21 11:45 | NUR ---
Received patient's personal belongings on the floor including tablet, cellphone with client experience consultant and goode bag.
--- NOTE | 2020-01-21 12:00 | NUR ---
Patient's blood sugar 159mg/dl, two units Regular Insulin held, patient sleeping and has not eaten lunch.
--- NOTE | 2020-01-21 12:25 | NUR ---
Dr Aggarwal at bedside, updated on patient's status. Patient seen and examined. Received verbal order to discontinue IV fluids, read back and verified. Will carry out.
[2020-01-21] MEDS: PANTOPRAZOLE 40 MG TAB PO SCH (14:19)
[2020-01-21] MEDS: CLINDAMYCIN 600MG IV 50 ML IV SCH ×2 (14:19→21:18)
[2020-01-21] MEDS: FOLIC ACID 1 MG TAB PO SCH (14:20)
--- NOTE | 2020-01-21 14:24 | NUR ---
Patient refusing to eat at this time stating "I just want to sleep."
--- NOTE | 2020-01-21 15:30 | NUR ---
Dr Mai at bedside, updated on patient's status. Patient seen and examined. Will instruct and motivate patient on IS per Dr Mai.
--- NOTE | 2020-01-21 15:52 | NUR ---
Patient instructed and motivated on use of IS, patient able to do up to 500ml.
[2020-01-21] MEDS: HYDROcodone-ACET 5/325MG TAB PO PRN (15:58)
[2020-01-21 16:00] VITALS: BP 120/67
[2020-01-21 20:00] VITALS: BP 108/55
--- NOTE | 2020-01-21 20:00 | NUR ---
SHIFT OPENING NOTE RECEIVED PATIENT AWAKE, ALERT AND ORIENTED X4. NO SOB, DISTRESS OR PAIN NOTED. ON 2L N/C. STATUS POST LEFT HIP SURGERY. DRESSING IS CLEAN, DRY AND INTACT. NORMAL PULSES, COLOR AND SENSATION TO LEFT LOWER EXTREMITY. SCD'S ON. INCENTIVE SPIROMETER AT BEDSIDE. PATIENT AWARE OF HOW TO USE IT. PHYSICAL ASSESSMENT COMPLETED, SEE INTERVENTIONS. INSTRUCTED ON POC AND TO CALL FOR ASSIST NEEDED. BED IS IN THE LOWEST POSITION WITH SIDE RAILS UP X2, CALL LIGHT IS WITHIN REACH.
[2020-01-22] VITALS: BP 98/50
[2020-01-22 03:37] LABS: Basophils # (auto) 0 10 ^3/uL (0-0.2); Basophils % (auto) 0.1 % (0.0-2.0); Eosinophils # (auto) 0 10 ^3/uL (0-0.8); Hematocrit 27.5 % (36.0-46.0); Hemoglobin 8.7 g/dL (12.2-16.2); Lymphocytes # (auto) 1.1 10 ^3/uL (0.4-5.4); Lymphocytes % (auto) 9.5 % (10.0-50.0); Mean Corpuscular Hemoglobin 23.5 pg (28.0-32.0); Mean Corpuscular Hgb Conc. 31.7 g/dL (32.0-36.0); Mean Corpuscular Volume 74.2 fL (80.0-100.0); Neutrophils # (auto) 9.2 10 ^3/uL (1.6-8.6); Neutrophils % (auto) 81.4 % (37.0-80.0); Platelet Count (auto) 322 10^3/uL (140-450); Red Cell Distribution Width 19.8 % (11.8-14.3); White Blood Cell 11.3 10^3/uL (4.4-10.8)
[2020-01-22 03:53] LABS: BUN/Creatinine Ratio 34.5; Magnesium 1.9 mg/dL (1.6-2.6); Potassium 4.3 mmol/L (3.5-5.1)
[2020-01-22 04:00] VITALS: BP 107/55
--- NOTE | 2020-01-22 05:00 | NUR ---
MORNING HYGIENE CARE FULL BED BATH PERFORMED USING CHG WIPES AND WARM SOAPY WASH CLOTHES. GOWN CHANGED, PARTIAL LINEN CHANGED. PATIENT REPOSITIONED FOR COMFORT. TOLERATED IT WELL.
[2020-01-22] MEDS: CLINDAMYCIN 600MG IV 50 ML IV SCH (06:18)
[2020-01-22] MEDS: InsuLIN REG 1unit/0.01ml Soln (100units/ml) SC SCH ×4 (06:18→21:32)
[2020-01-22] MEDS: ACCU-CHEK COMFORT CURVE STRIP VI SCH ×4 (06:18→21:31)
--- NOTE | 2020-01-22 06:55 | NUR ---
END OF SHIFT PATIENT IS LAYING IN BED SLEEPING. NO SOB, DISTRESS OR PAIN NOTED. ON 2L N/C. WILL GIVE REPORT AND ENDORSE CARE TO THE DAY SHIFT RN.
[2020-01-22 08:30] VITALS: BP 108/62
--- NOTE | 2020-01-22 08:30 | NUR ---
Opening Shift Note Assumed care of patient, awake and alert. No S/S of distress/SOB or pain. Patient on 1 LPM oxygen via nasal cannula, saturation 94%. LT hip dressing stained with minimal drainage, circled. See interventions for complete assessment. Bed locked on low position, side rails up x2, bed alarms on at all times, call parra within reach, instructed on POC and to call for assist PRN, will continue to monitor for changes Q1hr and PRN.
[2020-01-22] MEDS: FOLIC ACID 1 MG TAB PO SCH (09:25)
[2020-01-22] MEDS: AZTREONAM 1GM INJ 1 GM in D5W 5% 50 ML IV SCH ×2 (09:25→15:34)
[2020-01-22] MEDS: PANTOPRAZOLE 40 MG TAB PO SCH (09:25)
--- NOTE | 2020-01-22 11:43 | NUR ---
Patient dangling on bed with Dagmar PT. Fall precautions in place. Patient tolerated well.
[2020-01-22 12:00] VITALS: BP 114/55
--- NOTE | 2020-01-22 13:20 | NUR ---
Dr Little at bedside, updated on patient status. Patient seen and examined. Will carry out new orders.
[2020-01-22] MEDS: HYDROcodone-ACET 5/325MG TAB PO PRN ×2 (13:59→21:33)
--- NOTE | 2020-01-22 14:00 | NUR ---
Patient's HR 120's to 130's, sinus tachycardia per EKG. RR high 20 to low 30's, saturation 97% at 2 LPM oxygen via nasal cannula. Patient verbalized generalized body soreness "because of the bed" and LT hip discomfort after turning. [place] PRN administered. Will continue to monitor. Addendum: 01/22/20 at 1452 by Elina Joy RN BP 120/52
--- NOTE | 2020-01-22 14:20 | NUR ---
Dr Garcia at bedside, updated on patient's status. Patient seen and examined. No new orders at this time.
--- NOTE | 2020-01-22 14:55 | NUR ---
Spoke to Dr Little, updated on patient's status. Informed of patient's increased HR and RR, verbalized understanding. Received telephone order for Metoprolo 5mg IV and PO BID. Orders read back and verified. Will carry out.
[2020-01-22] MEDS ORDERED: METOPROLOL TARTRATE 1MG/1ML-5ML VIAL IV ONE (15:00)
--- NOTE | 2020-01-22 15:29 | NUR ---
Nutrition Followup Notes Pt wt is 50 kg Pt curtain was drawn when rounded this morning. Pt with a CCHO 60g diet, pt appetite is good aeb 90 to 100% of meals are eaten, pt with no distress or complaints per RN. Will continue to monitor PO status, skin status, pertinent labs and weight trends. Will f/u in 3 to 5 days. Est energy needs: 7240-7737 kcals (12-15 kcal/kgBW) Est protein needs: 63-76 gms/day (1.0-1.2 gm/kgBW) Will continue to monitor and reassess prn. LABS: NA 133 L, GLUC 187 H, CA 8.0 L, ALB 2.8 L GI: Last BM noted on per RN doc. BS: 18 moderate risk, incision. Please refer to wound assessment report for full details. PES: Problem 1) Increased nutrient needs r/t Pt with 0% PO intake aeb pt currently NPO 2) Obesity r/t energy intake in excess of energy needs aeb 228% IBW and BMI of 45.4 kg/m2 3) Altered nutrition related lab values r/t current medical condition aeb hyperglycemia, hypoalbuminemia Comments Will continue to closely monitor pertinent labs, PO intake and skin status prn. Will followup in 3-5 days 1) Continue to closely monitor pt NPO status (RESOLVED) 2) If pt remains NPO for the next 72 hours, consider supplemental nutrition support (RESOLVED) 3) Advance pt to oral CCHO 60g diet when medically feasible (RESOLVED) 4) Continue current plan of care
--- NOTE | 2020-01-22 15:30 | NUR ---
Patient resting, HR 110's to 120's, RR 20's. Will continue to monitor.
[2020-01-22 16:00] VITALS: BP 103/54
[2020-01-22 20:00] VITALS: BP 117/51
--- NOTE | 2020-01-22 20:00 | NUR ---
SHIFT OPENING NOTE RECEIVED PATIENT AWAKE, ALERT AND ORIENTED X4. NO SOB, DISTRESS OR PAIN NOTED. ON 2L N/C. STATUS POST LEFT HIP SURGERY. DRESSING IS CLEAN, DRY AND INTACT. NORMAL PULSES, COLOR AND SENSATION TO LEFT LOWER EXTREMITY. PHYSICAL ASSESSMENT COMPLETED, SEE INTERVENTIONS. INSTRUCTED ON POC AND TO CALL FOR ASSIST NEEDED. BED IS IN THE LOWEST POSITION WITH SIDE RAILS UP X2, CALL LIGHT IS WITHIN REACH.
[2020-01-22] MEDS: METOPROLOL TARTRATE 25 MG TAB PO SCH (21:33)
--- NOTE | 2020-01-22 23:30 | NUR ---
HYGIENE CARE FULL BED BATH PERFORMED USING CHG WIPES AND WARM SOAPY WASH CLOTHES. GOWN CHANGED, PARTIAL LINEN CHANGED. PATIENT REPOSITIONED FOR COMFORT. TOLERATED IT WELL.
[2020-01-23] VITALS (7 sets, daily range): BP systolic 91–131; BP diastolic 48–73
[2020-01-23] MEDS: TEMAZEPAM 15 MG CAP PO PRN ×2 (00:03→22:51)
[2020-01-23] MEDS: AZTREONAM 1GM INJ 1 GM in D5W 5% 50 ML IV SCH ×3 (00:04→17:01)
[2020-01-23 06:25] LABS: Hematocrit 32.2 % (36.0-46.0); Hemoglobin 10.4 g/dL (12.2-16.2)
[2020-01-23] MEDS: ACCU-CHEK COMFORT CURVE STRIP VI SCH ×4 (06:25→22:18)
[2020-01-23] MEDS: InsuLIN REG 1unit/0.01ml Soln (100units/ml) SC SCH ×4 (06:35→22:19)
--- NOTE | 2020-01-23 07:30 | NUR ---
END OF SHIFT REPORT GIVEN AND CARE ENDORSED TO JAYCEE SESAY.
--- NOTE | 2020-01-23 07:40 | NUR ---
OPENING SHIFT NOTE: Received report from NOC RNAlba. Assumed care of patient. Received patient resting in bed, connected to bedside monitor, no s/s of distress. Patient is A&Ox4, denies pain. Patient on 2LNC with O2 sats at 98%. Patient with a PIV to left upper arm #20 that flushes and is patent. Patient with dressing to left hip that's C/D/I. Phillips draining to gravity yellow urine output. Bed in lowest position, rails x4 up per patient request, call light within reach. Updated on plan of care. Will continue to monitor q1hr/PRN.
[2020-01-23] MEDS: FOLIC ACID 1 MG TAB PO SCH (09:30)
[2020-01-23] MEDS: METOPROLOL TARTRATE 25 MG TAB PO SCH ×2 (09:30→21:28)
[2020-01-23] MEDS: PANTOPRAZOLE 40 MG TAB PO SCH (09:30)
[2020-01-23] MEDS: HYDROcodone-ACET 5/325MG TAB PO PRN ×2 (11:49→22:51)
--- NOTE | 2020-01-23 12:30 | NUR ---
MD: Dr Mary Little to see patient. Patient to be downgraded to tele.
--- NOTE | 2020-01-23 13:32 | NUR ---
Report given to SHAMA Bond. Patient to be transferred on tele to rm 221B.
--- NOTE | 2020-01-23 13:57 | NUR ---
Patient transferred via bed to 221B.
--- NOTE | 2020-01-23 14:00 | NUR ---
NEDRA pt transferred to floor MOISES [place] transferred to Central unit via bed on quality assurance monitor chassis #[id number] and 02 at 2L NC. Oriented to RN, unit, room, and call light. Bed locked, HOB >30, upper siderails in up position. Patient alert and oriented. Dressing to left hip is CDI. Phillips patent and draining clear yellow urine. Pt instructed to call if she needs anything.
--- NOTE | 2020-01-23 23:47 | NUR ---
RECEIVED CALL FROM [employer]. PATIENT HAD A 6 BEAT RUN OF VTAC. SHE SINCE HAS GONE BACK TO PREVIOUS RHYTHM OF SR-ST (HIGH 90'S-LOW 100'S)
[2020-01-24] MEDS: AZTREONAM 1GM INJ 1 GM in D5W 5% 50 ML IV SCH ×3 (00:19→16:30)
[2020-01-24 05:00] VITALS: BP 95/56
[2020-01-24 06:24] LABS: Hematocrit 27.5 % (36.0-46.0); Hemoglobin 9.1 g/dL (12.2-16.2)
[2020-01-24] MEDS: InsuLIN REG 1unit/0.01ml Soln (100units/ml) SC SCH ×4 (06:41→22:14)
[2020-01-24] MEDS: ACCU-CHEK COMFORT CURVE STRIP VI SCH ×4 (06:42→22:15)
[2020-01-24 08:35] VITALS: BP 126/78
[2020-01-24 09:00] VITALS: BP 90/57
[2020-01-24] MEDS: METOPROLOL TARTRATE 25 MG TAB PO SCH (10:00)
[2020-01-24] MEDS: FOLIC ACID 1 MG TAB PO SCH (10:35)
[2020-01-24] MEDS: PANTOPRAZOLE 40 MG TAB PO SCH (10:35)
--- NOTE | 2020-01-24 10:50 | NUR ---
doctor shaikh yo. inform of patient low blood pressure. new orders received see emar for orders
[2020-01-24] MEDS ORDERED: SODIUM CHLORIDE 0.9% 1,000 ML IV ONE (11:00)
[2020-01-24 13:00] VITALS: BP 104/60
--- NOTE | 2020-01-24 15:57 | NUR ---
D/C Planning Per consult for home health for physical therapy, medication management and vitals. Order was reviewed and approved by [facility]. Faxed clinical information to [facility] and [facility]. Per Brennan with [facility] Ph:( [phone]) patient has been accepted and service to start within 24-48hrs upon d/c day.
[2020-01-24 17:00] VITALS: BP 107/56
[2020-01-24] MEDS: HYDROcodone-ACET 5/325MG TAB PO PRN ×2 (17:15→22:50)
[2020-01-24] MEDS: TEMAZEPAM 15 MG CAP PO PRN (21:38)
[2020-01-24 22:05] VITALS: BP 108/56
--- NOTE | 2020-01-24 22:44 | NUR ---
IV insertion IV access obtained, via clean sterile technique by inserting 22 gauge catheter at LFA after 1 attempt. IV secured properly. No trauma to site. Patient tolerated procedure well.
[2020-01-25] MEDS: AZTREONAM 1GM INJ 1 GM in D5W 5% 50 ML IV SCH ×3 (00:17→16:00)
[2020-01-25 05:00] VITALS: BP 117/63
[2020-01-25 06:25] LABS: Basophils # (auto) 0 10 ^3/uL (0-0.2); Basophils % (auto) 0.3 % (0.0-2.0); Eosinophils # (auto) 0.6 10 ^3/uL (0-0.8); Eosinophils % (auto) 5.6 % (0.0-7.0); Hematocrit 28.1 % (36.0-46.0); Hemoglobin 9.2 g/dL (12.2-16.2); Lymphocytes # (auto) 2.3 10 ^3/uL (0.4-5.4); Lymphocytes % (auto) 21.5 % (10.0-50.0); Mean Corpuscular Hgb Conc. 32.6 g/dL (32.0-36.0); Mean Corpuscular Volume 73.5 fL (80.0-100.0); Monocytes # (auto) 1.2 10 ^3/uL (0-1.3); Monocytes % (auto) 10.9 % (0.0-12.0); Neutrophils # (auto) 6.7 10 ^3/uL (1.6-8.6); Neutrophils % (auto) 61.7 % (37.0-80.0); Platelet Count (auto) 308 10^3/uL (140-450); Red Blood Cells 3.83 10^6/uL (4.0-5.20); Red Cell Distribution Width 19.5 % (11.8-14.3); White Blood Cell 10.9 10^3/uL (4.4-10.8)
[2020-01-25 06:33] LABS: BUN/Creatinine Ratio 35.6; Calcium 7.8 mg/dL (8.5-10.1); Magnesium 2.1 mg/dL (1.6-2.6); Potassium 3.9 mmol/L (3.5-5.1)
[2020-01-25] MEDS: InsuLIN REG 1unit/0.01ml Soln (100units/ml) SC SCH ×4 (07:00→21:17)
[2020-01-25] MEDS: ACCU-CHEK COMFORT CURVE STRIP VI SCH ×4 (07:00→21:16)
[2020-01-25] MEDS: PANTOPRAZOLE 40 MG TAB PO SCH (08:32)
[2020-01-25] MEDS: FOLIC ACID 1 MG TAB PO SCH (08:32)
[2020-01-25] MEDS: HYDROcodone-ACET 5/325MG TAB PO PRN ×3 (08:37→20:26)
[2020-01-25 09:24] VITALS: BP 107/55
[2020-01-25 14:38] VITALS: BP 99/49
[2020-01-25 16:34] VITALS: BP 108/63
--- NOTE | 2020-01-25 18:07 | NUR ---
Received call from [employer]. Patient had 4 beats of Vtach and back to baseline sinus tach 100-105.Informed chief information security officer Hospitalist Davey Chang FRAMING MANAGER. Per FRAMING MANAGER monitor patient for now call if patient has another prolong run or Vtach. Will continue to monitor.
--- NOTE | 2020-01-25 19:10 | NUR ---
OPENING SHIFT NOTE: ASSUMED CARE OF PATIENT, PATIENT IS AWAKE, ALERT AND ORIENTED X4, SITTING AT THE END OF THE BED FOR DINNER, ASSISTED PATIENT BACK INTO BED, NO S/S OF SOB/DISTRESS, PATIENT DENIES PAIN AT THIS TIME. PATIENT IS CONNECTED TO TELEMETRY BOX #43 AND CURRENT READING IS 98 BPM. GOEL IS HUNG BELOW THE BLADDER AND DRAINING TO GRAVITY. BED IS LOW, LOCKED, TWO SIDE RAILS RAISED, AND BED ALARM IS ACTIVATED. CALL HOPKINS IS WITHIN REACH. INSTRUCTED PATIENT ON POC AND TO CALL IF SHE NEEDS ANYTHING, PATIENT VERBALIZES UNDERSTANDING. WILL CONTINUE TO MONITOR Q1 HR AND PRN.
--- NOTE | 2020-01-25 21:30 | NUR ---
IV INSERTION/DISCONTINUE: NEW 22 GAUGE IV INSERTED IN THE LEFT AC. LEFT FOREARM 22 GAUGE FOUND TO BE INFILTRATED, IV DISCONTINUED, CATHETER TIP INTACT AND PRESSURE DRESSING APPLIED. PATIENT TOLERATED WELL.
[2020-01-26] MEDS: AZTREONAM 1GM INJ 1 GM in D5W 5% 50 ML IV SCH ×2 (00:20→08:00)
[2020-01-26] MEDS: TEMAZEPAM 15 MG CAP PO PRN (01:54)
[2020-01-26 05:00] VITALS: BP 123/64
[2020-01-26 06:03] LABS: Basophils # (auto) 0.1 10 ^3/uL (0-0.2); Eosinophils # (auto) 0.7 10 ^3/uL (0-0.8); Monocytes # (auto) 1.2 10 ^3/uL (0-1.3); White Blood Cell 10.7 10^3/uL (4.4-10.8)
[2020-01-26 06:05] LABS: Basophils % (auto) 0.5 % (0.0-2.0); Eosinophils % (auto) 6.7 % (0.0-7.0); Hematocrit 25.5 % (36.0-46.0); Hemoglobin 8.3 g/dL (12.2-16.2); Lymphocytes # (auto) 2.5 10 ^3/uL (0.4-5.4); Lymphocytes % (auto) 23.1 % (10.0-50.0); Mean Corpuscular Hemoglobin 23.9 pg (28.0-32.0); Mean Corpuscular Hgb Conc. 32.3 g/dL (32.0-36.0); Mean Corpuscular Volume 73.8 fL (80.0-100.0); Monocytes % (auto) 11.2 % (0.0-12.0); Neutrophils # (auto) 6.2 10 ^3/uL (1.6-8.6); Neutrophils % (auto) 58.5 % (37.0-80.0); Platelet Count (auto) 329 10^3/uL (140-450); Red Blood Cells 3.46 10^6/uL (4.0-5.20); Red Cell Distribution Width 19.5 % (11.8-14.3)
[2020-01-26] MEDS: ACCU-CHEK COMFORT CURVE STRIP VI SCH ×2 (06:31→11:30)
[2020-01-26] MEDS: InsuLIN REG 1unit/0.01ml Soln (100units/ml) SC SCH ×2 (06:31→11:30)
--- NOTE | 2020-01-26 08:23 | NUR ---
Opening Shift Note Assumed care of patient, patient is comfortably sitting at the edge of the bed having breakfast. Patient is awake and alert. No S/S of distress/SOB or pain. Instructed on POC and to call for assist PRN, will continue to monitor for changes Q1hr and PRN.
[2020-01-26 09:00] VITALS: BP 111/56
--- NOTE | 2020-01-26 09:15 | NUR ---
Pt requested PT tx "later" citing c/o fatigue because she had just gotten back to bed. RN confirmed that pt had sat on the EOB to eat breakfast and she had just laid down. Addendum: 01/26/20 at 1021 by Mert Nicole INSTITUTIONAL NUTRITION CONSULTANT Amended: Links added.
[2020-01-26] MEDS: FOLIC ACID 1 MG TAB PO SCH (09:52)
[2020-01-26] MEDS: PANTOPRAZOLE 40 MG TAB PO SCH (09:52)
[2020-01-26] MEDS: HYDROcodone-ACET 5/325MG TAB PO PRN (09:54)
--- NOTE | 2020-01-26 11:10 | NUR ---
WOUND CARE NOTE: Wound care in to see patient skin integrity monitoring. Patient is resting in bed in Rm. 221B. Patient is awake, alert and oriented. Patient is in no stated pain at this time. She's able to assist in turning and repositioning and her Kali score is 16. Patient is working with PT at this time, trying to get out of bed. No wound noted other than, clean, dry, stapled incision to Lt hip. No pressure injury noted. Patient tolerated well. P.T. at bedside. RECOMMENDATION: continuation of all other wound care orders prescribed by MD,continue with skin/wound plan of care, continue monitoring by wound care while patient is hospitalized. Addendum: 01/26/20 at 1513 by Stormy Roque RN Amended: Links added.
[2020-01-26 13:00] VITALS: BP 108/57
[2020-01-26] MEDS ORDERED: FER325T PO (13:59)
[2020-01-26] MEDS ORDERED: DOCU-94 PO (13:59)
[2020-01-26] MEDS ORDERED: RIVA10TA PO (13:59)
[2020-01-26] MEDS ORDERED: PANT40TA2 PO (13:59)
--- NOTE | 2020-01-26 13:59 | NUR ---
D/C Planning Per consult for hospital bed. Order was reviewed and approved by [facility]. Placed called to patient daughter Betty at 13:55 advising her the medical group will be authorizing the hospital bed for 30 days. [place] [id number] [address] [id number]. Betty verbalize understanding d/c plan. Faxed clinical information to [facility] and [facility] requesting for hospital bed to be deliver to patient home. Placed followed up call to [facility] with [facility]. Per [facility] order was received and authorization copy has been faxed to [facility]. Placed followed up called to [facility], spoke to Mary. Per Mary they will call patient daughter and provide time of delivery. Informed SHAMA Grigsby.
--- NOTE | 2020-01-26 16:30 | NUR ---
VS bp 124/60, rr18, spo2 98%, T 97.9. No c/o pain. no s/s of distress noted/ stated.
--- NOTE | 2020-01-26 16:51 | NUR ---
Discharge instructions given as ordered. Encourage to follow up with PMD as instructed. All questions and concerns addressed. Patient verbalized understanding. Medication reconciliation form completed and copy given to patient.IV removed with catheter intact, pressure dressing applied, Phillips catheter removed. Telemetry unit returned to ICU. Patient taken to vehicle via wheelchair with all personal belongings, accompanied by staff and family member. No distress noted at time of departure.
[2020-01-26 17:00] VITALS: BP 124/60
== END 2020-01-26 16:58 | disposition home health service (06) | DRG 853 ==
LOC: ER 16:39 → EDBD 16:39 → OVERFLOW 16:40 → WEST WING 22:30 → DOU IN ICU 01-21 09:55 → TELE-CENTR 01-23 14:00
PROVIDERS: ADMIT Hospitalist; ATTEND Internal Medicine
PROC: 0W9B3ZZ Drainage of Left Pleural Cavity, Percutaneous Approach (ICD-10-PCS; 2020-01-19)
PROC: 0QS706Z Reposition Left Upper Femur with Intramedullary Internal Fixation Device, Open Approach (ICD-10-PCS; principal; 2020-01-21 07:10)
DX: A41.9 Sepsis, unspecified organism (principal); S72.142A Displaced intertrochanteric fracture of left femur, initial encounter for closed fracture; J18.9 Pneumonia, unspecified organism; J96.20 Acute and chronic respiratory failure, unspecified whether with hypoxia or hypercapnia; R64 Cachexia; J98.11 Atelectasis; E44.0 Moderate protein-calorie malnutrition; J91.0 Malignant pleural effusion; N39.0 Urinary tract infection, site not specified; I10 Essential (primary) hypertension; J01.90 Acute sinusitis, unspecified; M19.90 Unspecified osteoarthritis, unspecified site; E11.9 Type 2 diabetes mellitus without complications; J44.9 Chronic obstructive pulmonary disease, unspecified; J84.10 Pulmonary fibrosis, unspecified; W18.39XA Other fall on same level, initial encounter; B96.20 Unspecified Escherichia coli [E. coli] as the cause of diseases classified elsewhere; D50.9 Iron deficiency anemia, unspecified; Z88.1 Allergy status to other antibiotic agents; Z88.0 Allergy status to penicillin; Z87.11 Personal history of peptic ulcer disease; Z82.61 Family history of arthritis; Z79.84 Long term (current) use of oral hypoglycemic drugs; Z79.899 Other long term (current) drug therapy; Z87.891 Personal history of nicotine dependence; Z99.81 Dependence on supplemental oxygen; Z79.02 Long term (current) use of antithrombotics/antiplatelets; Z82.49 Family history of ischemic heart disease and other diseases of the circulatory system; Z83.3 Family history of diabetes mellitus; Y93.89 Activity, other specified; Y92.89 Other specified places as the place of occurrence of the external cause; Y99.8 Other external cause status
CPT/HCPCS: 10022; 36415; 36600; 70450; 71045; 71275; 72192; 73502; 76001; 76942; 78452; 80048; 80053; 80061; 81001; 82805; 82962; 83036; 83735; 84443; 85014; 85018; 85025; 85379; 85610; 85730; 86850; 86900; 86901; 87086; 87088; 87186; 87205; 89051; 93005; 93017; 93306; 97110; 97116; 97163; 97530; A4565; C1713; G0378; J0153; J1100; J1815; J1956; J2250; J2405; J3490; J7060

== ENCOUNTER → 2020-02-29 | Outpatient (CLI) | payer OTHER ==
[~2020-02-29] MED LIST changes: -CLOP75TA41 PO; +DOCU-94 PO; +FER325T PO; +HYDR-4833 PO; -LISI-275 PO; +PANT40TA2 PO; +RIVA10TA PO; +TRAZ50TA2 PO
== END | disposition home or self-care (01) ==
LOC: LAB 12:23
PROVIDERS: ATTEND Internal Medicine
DX: C34.90 Malignant neoplasm of unspecified part of unspecified bronchus or lung (principal)
CPT/HCPCS: 36415; 82565; 84520

== ENCOUNTER → 2020-06-16 | Outpatient (CLI) | payer OTHER ==
[2020-06-16 11:56] LABS: Basophils # (auto) 0 10 ^3/uL (0-0.2); Basophils % (auto) 0.2 % (0.0-2.0); Eosinophils # (auto) 0 10 ^3/uL (0-0.8); Eosinophils % (auto) 0.1 % (0.0-7.0); Hematocrit 42.6 % (36.0-46.0); Hemoglobin 13.5 g/dL (12.2-16.2); Lymphocytes # (auto) 0.5 10 ^3/uL (0.4-5.4); Lymphocytes % (auto) 5.5 % (10.0-50.0); Mean Corpuscular Hemoglobin 26.3 pg (28.0-32.0); Mean Corpuscular Hgb Conc. 31.7 g/dL (32.0-36.0); Mean Corpuscular Volume 82.9 fL (80.0-100.0); Monocytes # (auto) 0.6 10 ^3/uL (0-1.3); Monocytes % (auto) 6.5 % (0.0-12.0); Neutrophils % (auto) 87.7 % (37.0-80.0); Nucleated Red Blood Cells % 0.1 %; Platelet Count (auto) 223 10^3/uL (140-450); Red Blood Cells 5.13 10^6/uL (4.0-5.20); Red Cell Distribution Width 17.6 % (11.8-14.3); White Blood Cell 9.1 10^3/uL (4.4-10.8)
[2020-06-16 12:18] LABS: Albumin 2.7 g/dL (3.4-5.0); Calcium 8.5 mg/dL (8.5-10.1); Potassium 3.6 mmol/L (3.5-5.1)
[2020-06-16 12:21] LABS: BUN/Creatinine Ratio 27.4; Bilirubin, Total 0.5 mg/dL (0.2-1.0)
[2020-06-16 12:24] LABS: INR 1.07 (0.9-1.15)
== END | disposition home or self-care (01) ==
LOC: LAB 11:19
PROVIDERS: ATTEND Internal Medicine
DX: C34.90 Malignant neoplasm of unspecified part of unspecified bronchus or lung (principal); E11.9 Type 2 diabetes mellitus without complications
CPT/HCPCS: 36415; 80053; 83036; 83880; 85025; 85610